=== PATIENT | male | born 1955 | race American Indian/Alaskan Native ===

== ENCOUNTER 2020-10-16 20:28 | Inpatient (IN) | payer OTHER ==
[2020-10-16] MEDS ORDERED: NITROGLYCERIN DRIP 50 MG/250 ML BOTTLE ONE (20:34)
[2020-10-16] MEDS ORDERED: AZITHROMYCIN/NS 500 MG/250 ML 500 MG/250 ML BAG IV ONE (21:15)
[2020-10-16] MEDS ORDERED: dexAMETHasone 4 MG/ML VIAL IV ONE (21:16)
--- NOTE | 2020-10-16 21:17 | Emergency Department Report ---
ED General Adult HPI - General Chief complaint: Dyspnea/Respdistress Stated complaint: RESPIRATORY DISTRESS PUI?: Yes Time Seen by Provider: 10/16/20 21:14 Source: patient, EMS (Verbal report received from emergency medical services. EMS documentation not available at time of chart dictation ), RN notes reviewed Mode of arrival: Stretcher Limitations: Physical Limitation - History of Present Illness Initial comments: The patient was evaluated in the emergency department for symptoms described in the history of present illness. He/she was evaluated in the context of the global COVID-19 pandemic, which necessitated consideration that the patient might be at risk for infection with the virus that causes COVID-19. Institu tional protocols and algorithms that pertain to the evaluation of patients at risk for COVID-19 are in a state of rapid change based on information released by regulatory bodies including the CDC and federal and state organizations. These policies and algorithms were followed during the patient's care in the emergency department. Please note that these policies, procedures and recommendations changed on a rapid basis. The patient is a 65-year-old gentleman. He reportedly has a history of COPD. He is not COVID-19 vaccinated. He is not known to myself previously. During the entire history and physical examination, I had on complete personal protective equipment. The patient is brought to the hospital by EMS with an EMS articulated complaint of acute onset shortness of breath. EMS reports the patient was hypotensive in the field, with a blood pressure of 200/140, and marked respiratory distress. EMS gave magnesium, 7 mg of albuterol, and started the patient on CPAP. Upon arrival to this emergency room, the patient is in marked respiratory distress, tachypneic, with JVD, diaphoresis, and crackles and rales. We had immediate clinical concern for flash pulmonary edema. The patient received 1000 mcg of intravenous nitroglycerin pushed by myself x4. This markedly improved his symptoms. The patient currently denies headache, neck pain, chest pain, abdominal pain. He endorses left quadriceps pain and cramping, but otherwise, denies travel, surgery, immobilization, DVT and pulmonary embolism risk factors. He denies Covid symptoms, such as loss of taste and smell. He is not COVID-19 vaccinated. Currently, he is on a BiPAP, on a nitroglycerin drip at 100 mcg/min, Heart rate 130/140s, with a blood pressure one fifteen systolic. He reports that he feels significantly improved. -: Sudden Consistency: constant Improves with: medication Worsens with: movement - Related Data Allergies Allergy/AdvReac Type Severity Reaction Status Date / Time No Known Allergies Allergy Verified 10/16/20 21:11 ED Review of Systems ROS: Stated complaint: RESPIRATORY DISTRESS Other details as noted in HPI Comment: Unobtainable due to pts medical conditions Constitutional: malaise, weakness. denies: fever Eyes: denies: eye discharge ENT: denies: congestion Respiratory: shortness of breath, SOB with exertion, SOB at rest Cardiovascular: dyspnea on exertion. denies: chest pain, edema, syncope Gastrointestinal: denies: abdominal pain, hematemesis, melena, hematochezia Musculoskeletal: other (Left quadricep cramping) Neurological: denies: weakness (No focal weakness) Psychiatric: anxiety Hematological/Lymphatic: denies: easy bleeding ED Past Medical Hx - Past Medical History Previous Medical History?: Yes Hx COPD: Yes Additional medical history: arthritis - Surgical History Past Surgical History?: No - Social History Smoking Status: Current Some Day Smoker Substance Use Type: Alcohol ED Physical Exam - General Limitations: Physical Limitation General appearance: alert, anxious, in distress - Head Head exam: Present: atraumatic, normocephalic - Eye Eye exam: Present: normal appearance, EOMI. Absent: nystagmus - ENT ENT exam: Present: normal exam, normal orophraynx, mucous membranes moist, normal external ear exam - Neck Neck exam: Present: normal inspection, full ROM. Absent: tenderness, meningismus - Respiratory Respiratory exam: Present: respiratory distress, rales, accessory muscle use. Absent: stridor - Cardiovascular Cardiovascular Exam: Present: normal rhythm, tachycardia, normal heart sounds. Absent: bradycardia, systolic murmur, diastolic murmur, rubs, gallop - GI/Abdominal GI/Abdominal exam: Present: soft. Absent: distended, tenderness, guarding, rebound, rigid, pulsatile mass - Rectal Rectal exam: Present: deferred - Extremities Exam Extremities exam: Present: normal inspection, full ROM, other (2+ pulses noted in the bilateral upper and lower extremities. There is no palpable cord. negative Homans sign. Muscular compartments are soft. The pelvis is stable.). Absent: pedal edema, calf tenderness - Back Exam Back exam: Present: normal inspection. Absent: tenderness, CVA tenderness (R), CVA tenderness (L), paraspinal tenderness, vertebral tenderness - Neurological Exam Neurological exam: Present: alert, other (There is no facial droop. EOMI. 5 out of 5 strength in four extremities) - Psychiatric Psychiatric exam: Present: anxious - Skin Skin exam: Present: warm, dry, intact, normal color. Absent: rash ED Course Vital Signs 10/16/20 10/16/20 10/16/20 20:46 20:50 21:00 Temperature Pulse Rate 158 H 158 H 157 H Pulse Rate [ Anterior Bilateral Throughout] Respiratory 37 H 33 H 33 H Rate Respiratory Rate [Anterior Bilateral Throughout] Blood Pressure 140/110 O2 Sat by Pulse 91 98 98 Oximetry 10/16/20 10/16/20 10/16/20 21:15 21:31 21:45 Temperature Pulse Rate 146 H 146 H Pulse Rate [ Anterior Bilateral Throughout] Respiratory 33 H 21 23 Rate Respiratory Rate [Anterior Bilateral Throughout] Blood Pressure 107/79 113/84 O2 Sat by Pulse 99 98 96 Oximetry 10/16/20 10/16/20 10/16/20 22:01 22:15 22:31 Temperature Pulse Rate 142 H 139 H Pulse Rate [ Anterior Bilateral Throughout] Respiratory 21 25 H 25 H Rate Respiratory Rate [Anterior Bilateral Throughout] Blood Pressure 109/77 113/84 114/82 O2 Sat by Pulse 97 99 97 Oximetry 10/16/20 10/16/20 10/16/20 22:45 23:01 23:15 Temperature Pulse Rate 133 H 129 H 131 H Pulse Rate [ Anterior Bilateral Throughout] Respiratory 24 19 22 Rate Respiratory Rate [Anterior Bilateral Throughout] Blood Pressure 113/77 130/78 140/85 O2 Sat by Pulse 98 98 98 Oximetry 10/16/20 10/16/20 10/17/20 23:31 23:45 00:01 Temperature Pulse Rate 123 H 127 H 120 H Pulse Rate [ Anterior Bilateral Throughout] Respiratory 18 20 20 Rate Respiratory Rate [Anterior Bilateral Throughout] Blood Pressure 124/77 139/82 150/81 O2 Sat by Pulse 100 97 98 Oximetry 10/17/20 10/17/20 10/17/20 00:15 00:35 00:45 Temperature Pulse Rate 122 H Pulse Rate [ Anterior Bilateral Throughout] Respiratory 25 H 22 Rate Respiratory Rate [Anterior Bilateral Throughout] Blood Pressure 124/77 124/77 135/101 O2 Sat by Pulse 98 100 100 Oximetry 10/17/20 10/17/20 10/17/20 00:46 01:01 01:15 Temperature Pulse Rate 123 H Pulse Rate [ Anterior Bilateral Throughout] Respiratory 25 H 22 18 Rate Respiratory Rate [Anterior Bilateral Throughout] Blood Pressure 135/101 131/94 129/92 O2 Sat by Pulse 99 98 99 Oximetry 10/17/20 10/17/20 10/17/20 01:31 01:45 02:01 Temperature Pulse Rate 126 H 124 H Pulse Rate [ Anterior Bilateral Throughout] Respiratory 21 22 21 Rate Respiratory Rate [Anterior Bilateral Throughout] Blood Pressure 122/78 122/78 117/85 O2 Sat by Pulse 99 100 100 Oximetry 10/17/20 10/17/20 10/17/20 02:15 02:31 02:45 Temperature Pulse Rate 121 H 116 H 116 H Pulse Rate [ Anterior Bilateral Throughout] Respiratory 26 H 18 17 Rate Respiratory Rate [Anterior Bilateral Throughout] Blood Pressure 117/84 117/84 131/83 O2 Sat by Pulse 99 97 99 Oximetry 10/17/20 10/17/20 10/17/20 03:01 03:15 03:31 Temperature Pulse Rate 113 H 123 H 114 H Pulse Rate [ Anterior Bilateral Throughout] Respiratory 20 16 18 Rate Respiratory Rate [Anterior Bilateral Throughout] Blood Pressure 136/76 109/79 118/82 O2 Sat by Pulse 99 99 98 Oximetry 10/17/20 10/17/20 10/17/20 03:45 04:01 04:10 Temperature 97.6 F Pulse Rate 112 H 102 H Pulse Rate [ Anterior Bilateral Throughout] Respiratory 18 17 Rate Respiratory Rate [Anterior Bilateral Throughout] Blood Pressure 113/87 123/87 O2 Sat by Pulse 98 97 Oximetry 10/17/20 10/17/20 10/17/20 04:15 04:31 04:45 Temperature Pulse Rate 103 H 113 H 103 H Pulse Rate [ Anterior Bilateral Throughout] Respiratory 17 19 18 Rate Respiratory Rate [Anterior Bilateral Throughout] Blood Pressure 109/89 115/92 128/92 O2 Sat by Pulse 99 98 100 Oximetry 10/17/20 10/17/20 10/17/20 05:00 05:15 05:31 Temperature Pulse Rate 107 H 104 H 107 H Pulse Rate [ Anterior Bilateral Throughout] Respiratory 17 20 20 Rate Respiratory Rate [Anterior Bilateral Throughout] Blood Pressure 128/92 123/79 122/92 O2 Sat by Pulse 99 99 97 Oximetry 10/17/20 10/17/20 10/17/20 05:45 06:01 06:15 Temperature Pulse Rate 105 H 119 H 105 H Pulse Rate [ Anterior Bilateral Throughout] Respiratory 16 24 18 Rate Respiratory Rate [Anterior Bilateral Throughout] Blood Pressure 121/81 118/81 125/85 O2 Sat by Pulse 98 98 99 Oximetry 10/17/20 10/17/20 10/17/20 07:01 08:01 08:41 Temperature Pulse Rate 106 H 115 H 116 H Pulse Rate [ Anterior Bilateral Throughout] Respiratory 19 19 Rate Respiratory Rate [Anterior Bilateral Throughout] Blood Pressure 116/81 116/79 117/87 O2 Sat by Pulse 99 98 Oximetry 10/17/20 10/17/20 10/17/20 09:01 09:58 10:01 Temperature Pulse Rate 97 H 105 H Pulse Rate [ Anterior Bilateral Throughout] Respiratory 21 23 Rate Respiratory Rate [Anterior Bilateral Throughout] Blood Pressure 140/76 141/106 O2 Sat by Pulse 99 99 100 Oximetry 10/17/20 10/17/20 10/17/20 10:53 11:01 12:01 Temperature Pulse Rate 112 H Pulse Rate [ 103 H Anterior Bilateral Throughout] Respiratory 29 H 18 Rate Respiratory 19 Rate [Anterior Bilateral Throughout] Blood Pressure 145/96 120/84 O2 Sat by Pulse 99 92 Oximetry 10/17/20 10/17/20 10/17/20 13:01 13:36 14:55 Temperature Pulse Rate 93 H Pulse Rate [ 103 H Anterior Bilateral Throughout] Respiratory 16 Rate Respiratory 15 Rate [Anterior Bilateral Throughout] Blood Pressure 133/96 O2 Sat by Pulse 93 Oximetry 10/17/20 14:56 Temperature Pulse Rate Pulse Rate [ Anterior Bilateral Throughout] Respiratory Rate Respiratory Rate [Anterior Bilateral Throughout] Blood Pressure O2 Sat by Pulse 97 Oximetry - Reevaluation(s) Reevaluation #1: 10/16/20 23:00 Differential diagnosis, including but not limited to: Flash pulmonary edema, pneumonia, COPD exacerbation, congestive heart failure, pulmonary embolism, COVID-19 Assessment and plan: 65-year-old gentleman, presenting with marked tachypnea, tachycardia, JVD, diaphoresis, and hypertension, very suspicious for clinical flash pulmonary edema. He was treated very aggressively with nitroglycerin, and had a moderate to significant improvement. He is not COVID-19 vaccinated, and he denies DVT and pulmonary embolism risk factors, however, he is ruling in for systemic inflammatory response syndrome, and is still moderately tachycardic. EMS gave seven of albuterol in the field. Place patient on isolation. Start antibiotics, and continue Decadron. Obtain CT angiogram of the chest. Attempt to wean patient off of nitroglycerin. Hospital physician, Dr. Guillen to admit to [facility] If we cannot wean patient off of nitroglycerin, he will require admission to the ICU, and we will also contact critical care to follow in consultation. The patient himself denies physical chest pain or abdominal pain at this time. The patient is agreeable to admission and hospitalization. Send Covid laboratory studies. 10/16/20 23:02 Given concern for Covid for flash pulmonary edema, in spite of patient ruling in for systemic inflammatory response syndrome, we will withhold aggressive fluid bolus. The hospital physician requested 40 mg of Lasix. 10/17/20 00:52 Have not been able to wean patient from nitroglycerin. He will be admitted to the ICU. CT scan of the chest obtained, shows no pulmonary embolism, or pneumothorax. Dr. Parsons of critical care will follow in consultation. Dr Guillen updated 10/17/20 01:25 Patient is much improved. Heart rate 122 bpm. Blood pressure is 122/78. ED Medical Decision Making - Lab Data Result diagrams: 10/16/20 08:49 10/17/20 08:15 Vital Signs 10/16/20 10/16/20 20:50 21:15 Pulse Rate 158 H Respiratory 33 H 33 H Rate Blood Pressure 140/110 O2 Sat by Pulse 98 99 Oximetry Lab Results 10/16/20 10/16/20 10/16/20 Range/Units 08:49 08:49 08:49 WBC 7.8 (4.5-11.0) K/mm3 RBC 4.90 (3.65-5.03) M/mm3 Hgb 14.3 (11.8-15.2) gm/dl Hct 41.8 (35.5-45.6) % MCV 86 (84-94) fl MCH 29 (28-32) pg MCHC 34 (32-34) % RDW 15.9 H (13.2-15.2) % Plt Count 297 (140-440) K/mm3 Lymph % (Auto) 37.9 H (13.4-35.0) % Louisa % (Auto) 11.7 H (0.0-7.3) % Eos % (Auto) 5.7 H (0.0-4.3) % Baso % (Auto) 0.8 (0.0-1.8) % Lymph # (Auto) 2.9 (1.2-5.4) K/mm3 Louisa # (Auto) 0.9 H (0.0-0.8) K/mm3 Eos # (Auto) 0.4 (0.0-0.4) K/mm3 Baso # (Auto) 0.1 (0.0-0.1) K/mm3 Seg Neutrophils % 43.9 (40.0-70.0) % Seg Neutrophils # 3.4 (1.8-7.7) K/mm3 PT 13.6 (12.2-14.9) Sec. INR 0.99 (0.87-1.13) APTT 29.1 (24.2-36.6) Sec. D-Dimer 945.42 H (0-234) ng/mlDDU Sodium (137-145) mmol/L Potassium (3.6-5.0) mmol/L Chloride (98-107) mmol/L Carbon Dioxide (22-30) mmol/L Anion Gap mmol/L BUN (9-20) mg/dL Creatinine (0.8-1.3) mg/dL Estimated GFR ml/min BUN/Creatinine Ratio % Glucose (75-100) mg/dL Lactic Acid 1.70 (0.7-2.0) mmol/L Calcium (8.4-10.2) mg/dL Magnesium (1.7-2.3) mg/dL Ferritin (30.0-300.0) ng/mL Total Bilirubin (0.1-1.2) mg/dL AST (5-40) units/L ALT (7-56) units/L Alkaline Phosphatase (35-129) units/L Lactate Dehydrogenase (91-180) units/L Troponin T (0.00-0.029) ng/mL C-Reactive Protein (0.00-1.30) mg/dL NT-Pro-B Natriuret Pep (0-900) pg/mL Total Protein (6.3-8.2) g/dL Albumin (3.9-5) g/dL Albumin/Globulin Ratio % 10/16/20 10/16/20 10/16/20 Range/Units 21:33 21:33 21:33 WBC (4.5-11.0) K/mm3 RBC (3.65-5.03) M/mm3 Hgb (11.8-15.2) gm/dl Hct (35.5-45.6) % MCV (84-94) fl MCH (28-32) pg MCHC (32-34) % RDW (13.2-15.2) % Plt Count (140-440) K/mm3 Lymph % (Auto) (13.4-35.0) % Louisa % (Auto) (0.0-7.3) % Eos % (Auto) (0.0-4.3) % Baso % (Auto) (0.0-1.8) % Lymph # (Auto) (1.2-5.4) K/mm3 Louisa # (Auto) (0.0-0.8) K/mm3 Eos # (Auto) (0.0-0.4) K/mm3 Baso # (Auto) (0.0-0.1) K/mm3 Seg Neutrophils % (40.0-70.0) % Seg Neutrophils # (1.8-7.7) K/mm3 PT (12.2-14.9) Sec. INR (0.87-1.13) APTT (24.2-36.6) Sec. D-Dimer (0-234) ng/mlDDU Sodium 136 L (137-145) mmol/L Potassium 4.5 (3.6-5.0) mmol/L Chloride 100.2 (98-107) mmol/L Carbon Dioxide 25 (22-30) mmol/L Anion Gap 15 mmol/L BUN 10 (9-20) mg/dL Creatinine 0.9 (0.8-1.3) mg/dL Estimated GFR > 60 ml/min BUN/Creatinine Ratio 11 % Glucose 209 H (75-100) mg/dL Lactic Acid (0.7-2.0) mmol/L Calcium 9.7 (8.4-10.2) mg/dL Magnesium 2.50 H (1.7-2.3) mg/dL Ferritin 128.6 (30.0-300.0) ng/mL Total Bilirubin 0.50 (0.1-1.2) mg/dL AST 18 (5-40) units/L ALT 24 (7-56) units/L Alkaline Phosphatase 83 (35-129) units/L Lactate Dehydrogenase 168 (91-180) units/L Troponin T < 0.010 (0.00-0.029) ng/mL C-Reactive Protein 1.70 H (0.00-1.30) mg/dL NT-Pro-B Natriuret Pep 33.93 (0-900) pg/mL Total Protein 7.9 (6.3-8.2) g/dL Albumin 4.1 (3.9-5) g/dL Albumin/Globulin Ratio 1.1 % - EKG Data -: EKG Interpreted by Ok EKG shows normal: sinus rhythm Rate: tachycardia - EKG Data 10/16/20 22:59 The EKG is interpreted at 21: 17 Sinus rhythm, tachycardia, 148 bpm. Normal axis, normal IL interval, QTC 445 ms, left ventricular hypertrophy, borderline incomplete right bundle branch block. This is an abnormal EKG. This is not a STEMI. There is no prior EKG available for comparison. - Radiology Data Radiology results: pending, report reviewed, image reviewed XR chest 1V ap INDICATION / CLINICAL INFORMATION: Dyspnea. COMPARISON: None available. FINDINGS: SUPPORT DEVICES: None. HEART /PULMONARY VASCULATURE: No significant abnormality. LUNGS / PLEURA: Lungs are hyperexpanded. There are patchy interstitial opacities throughout the mid to lower lungs. No sizable pleural effusion. No pneumothorax. ADDITIONAL FINDINGS: No significant additional findings. IMPRESSION: Mild patchy interstitial opacities, suspicious for infiltrate. Signer Name: Barrett Villarreal MD Signed: 10/16/2020 8:29 PM Workstation Name: [id number] CTA CHEST WITH CONTRAST INDICATION / CLINICAL INFORMATION: acute dyspnea. TE CHNIQUE: Axial CT images were obtained through the chest after injection of IV contrast. 3 plane MIP and/or 3D reconstructions were produced. All CT scans at this location are performed using CT dose reduction for ALARA by means of automated exposure control. COMPARISON: None available. FINDINGS: Pulmonary arteries are patent without filling defect or evidence for PTE. Heart and aorta appear normal. No mediastinal or hilar adenopathy. No focal consolidation or pleural effusion. Emphysematous changes seen in bilateral lungs ADDITIONAL FINDINGS: None. UPPER ABDOMEN: No acute findings. SKELETAL STRUCTURES: No significant osseous abnormality. IMPRESSION: 1. No CT evidence for pulmonary embolism. 2. No acute findings. Signer Name: Bethel Ramirez MD Signed: 10/16/2020 11:46 PM Workstation Name: [id number] Critical Care Time: Yes Critical care time in (mins) excluding proc time.: 35 Critical care attestation.: If time is entered above; I have spent that time in minutes in the direct care of this critically ill patient, excluding procedure time. ED Disposition Clinical Impression: Acute respiratory failure, Suspected COVID-19 virus infection, Hypertensive e mergency Disposition: ADMITTED INPATIENT Is pt being admited?: Yes Does the pt Need Aspirin: No Condition: Critical
--- NOTE | 2020-10-16 21:34 | XRay Report ---
XR chest 1V ap INDICATION / CLINICAL INFORMATION: Dyspnea. COMPARISON: None available. FINDINGS: SUPPORT DEVICES: None. HEART /PULMONARY VASCULATURE: No significant abnormality. LUNGS / PLEURA: Lungs are hyperexpanded. There are patchy interstitial opacities throughout the mid t o lower lungs. No sizable pleural effusion. No pneumothorax. ADDITIONAL FINDINGS: No significant additional findings. IMPRESSION: Mild patchy interstitial opacities, suspicious for infiltrate. Signer Name: Barrett Villarreal MD Signed: 10/16/2020 9:29 PM Workstation Name: [id number]
[2020-10-16 21:35] LABS: Basophils # (Auto) 0.1 K/mm3 (0.0-0.1); Basophils % (Auto) 0.8 % (0.0-1.8); Eosinophils # (Auto) 0.4 K/mm3 (0.0-0.4); Eosinophils % (Auto) 5.7 % (0.0-4.3); Hematocrit 41.8 % (35.5-45.6); Hemoglobin 14.3 gm/dl (11.8-15.2); Lymphocytes # (Auto) 2.9 K/mm3 (1.2-5.4); Lymphocytes % (Auto) 37.9 % (13.4-35.0); Mean Corpuscular HGB Conc 34 % (32-34); Mean Corpuscular Volume 86 fl (84-94); Monocytes # (Auto) 0.9 K/mm3 (0.0-0.8); Monocytes % (Auto) 11.7 % (0.0-7.3); Platelet Count 297 K/mm3 (140-440); Red Cell Distribution Width 15.9 % (13.2-15.2)
[2020-10-16 21:46] LABS: INR 0.99 (0.87-1.13)
[2020-10-16 21:47] LABS: Partial Thromboplastin Time 29.1 Sec. (24.2-36.6)
[2020-10-16] MEDS ORDERED: NITROGLYCERIN DRIP 50 MG/250 ML BOTTLE IV SCH (22:00)
[2020-10-16 22:42] LABS: Alanine Aminotransferase 24 units/L (7-56); Albumin 4.1 g/dL (3.9-5); BUN/Creatinine Ratio 11; Blood Urea Nitrogen 10 mg/dL (9-20); Calcium 9.7 mg/dL (8.4-10.2); Hemolysis Index 3
[2020-10-16] MEDS ORDERED: FUROSEMIDE 40 MG/4 ML INJ IV ONE (22:48)
[2020-10-16] MEDS ORDERED: cefTRIAXone/NS 1 GM/50 ML 1 GM/50 ML BAG IV ONE (23:18)
--- NOTE | 2020-10-17 00:50 | Cat Scan Report ---
CTA CHEST WITH CONTRAST INDICATION / CLINICAL INFORMATION: acute dyspnea. TECHNIQUE: Axial CT images were obtained through the chest after injection of IV contrast. 3 plane AR P and/or 3D reconstructions were produced. All CT scans at this location are performed using CT dose reduction for ALARA by means of automated exposure control. COMPARISON: None available. FINDINGS: Pulmonary arteries are patent without filling defect or evidence for PTE. Heart and aorta appear norm al. No mediastinal or hilar adenopathy. No focal consolidation or pleural effusion. Emphysematous main nges seen in bilateral lungs ADDITIONAL FINDINGS: None. UPPER ABDOMEN: No acute findings. SKELETAL STRUCTURES: No significant osseous abnormality. IMPRESSION: 1. No CT evidence for pulmonary embolism. 2. No acute findings. Signer Name: Bethel Ramirez MD Signed: 10/17/2020 12:46 AM Workstation Name: [id number]
[2020-10-17] MEDS ORDERED: SODIUM CHLORIDE 0.9% 250ML 250 ML IV ONE (01:25)
--- NOTE | 2020-10-17 02:56 | History and Physical Report ---
History of Present Illness Date of examination: 10/17/20 Date of admission: 10/17/20 00:47 Chief complaint: Dyspnea Respiratory distress Hypertension History of present illness: 65-year-old male with past medical history of COPD was brought to the emergency room because of acute onset shortness of breath. EMS reports the patient was hypertensive in the field, with a blood pressure of 200/140, and marked respiratory distress. EMS gave magnesium, 7 mg of albuterol, and started the patient on CPAP. Upon arrival to this emergency room, the patient is in marked respiratory distress, tachypneic, with JVD, diaphoresis, and crackles and rales concern for flash pulmonary edema. The patient received 1000 mcg of intravenous nitroglycerin . Patient was put on BiPAP and nitro drip. this markedly improved his symptoms. The patient currently denies headache, neck pain, chest pain, abdominal pain. He endorses left quadriceps pain , He denies Covid symptoms, such as loss of taste and smell. He is not COVID-[address] scan of the chest showed no active pulmonary embolism. No acute findings Past History Past Medical History: COPD Medications and Allergies Allergies Allergy/AdvReac Type Severity Reaction Status Date / Time No Known Allergies Allergy Verified 10/16/20 21:11 Active Meds: Active Medications Nitroglycerin/Dextrose (Tridil Drip 50mg/250ml) 50 mg in 250 mls @ 3 mls/hr IV TITR [facility]ERISE; Protocol Last Titration: 10/16/20 22:50 Dose: 50 mcg/min, 15 mls/hr Documented by: Review of Systems All systems: negative Cardiovascular: shortness of breath, dyspnea on exertion Respiratory: shortness of breath, dyspnea on exertion Exam - Constitutional Vitals: Temp Pulse Resp BP Pulse Ox 116 H 17 131/83 99 10/17/20 02:45 10/17/20 02:45 10/17/20 02:45 10/17/20 02:45 General appearance: Present: no acute distress, well-nourished - EENT Eyes: Present: PERRL ENT: hearing intact, clear oral mucosa - Neck Neck: Present: supple, normal ROM - Respiratory Respiratory effort: labored, accessory muscle use Respiratory: bilateral: rales - Cardiovascular Heart Sounds: Present: S1 & S2. Absent: rub, click - Extremities Extremities: pulses symmetrical, No edema Peripheral Pulses: within normal limits - Abdominal General gastrointestinal: Present: soft, non-tender, non-distended, normal bowel sounds Male genitourinary: Present: normal - Integumentary Integumentary: Present: clear, warm, dry - Musculoskeletal Musculoskeletal: gait normal, strength equal bilaterally - Psychiatric Psychiatric: appropriate mood/affect, intact judgment & insight - Neurologic Neurologic: CNII-XII intact, moves all extremities HEART Score - HEART Score Troponin: Troponin T < 0.010 ng/mL (0.00-0.029) 10/16/20 21:33 Results - Labs CBC & Chem 7: 10/16/20 08:49 10/16/20 21:33 Labs: Laboratory Last Values WBC 7.8 K/mm3 (4.5-11.0) 10/16/20 08:49 RBC 4.90 M/mm3 (3.65-5.03) 10/16/20 08:49 Hgb 14.3 gm/dl (11.8-15.2) 10/16/20 08:49 Hct 41.8 % (35.5-45.6) 10/16/20 08:49 MCV 86 fl (84-94) 10/16/20 08:49 MCH 29 pg (28-32) 10/16/20 08:49 MCHC 34 % (32-34) 10/16/20 08:49 RDW 15.9 % (13.2-15.2) H 10/16/20 08:49 Plt Count 297 K/mm3 (140-440) 10/16/20 08:49 Lymph % (Auto) 37.9 % (13.4-35.0) H 10/16/20 08:49 [place] % (Auto) 11.7 % (0.0-7.3) H 10/16/20 08:49 Eos % (Auto) 5.7 % (0.0-4.3) H 10/16/20 08:49 Baso % (Auto) 0.8 % (0.0-1.8) 10/16/20 08:49 Lymph # (Auto) 2.9 K/mm3 (1.2-5.4) 10/16/20 08:49 [place] # (Auto) 0.9 K/mm3 (0.0-0.8) H 10/16/20 08:49 Eos # (Auto) 0.4 K/mm3 (0.0-0.4) 10/16/20 08:49 Baso # (Auto) 0.1 K/mm3 (0.0-0.1) 10/16/20 08:49 Seg Neutrophils % 43.9 % (40.0-70.0) 10/16/20 08:49 Seg Neutrophils # 3.4 K/mm3 (1.8-7.7) 10/16/20 08:49 PT 13.6 Sec. (12.2-14.9) 10/16/20 08:49 INR 0.99 (0.87-1.13) 10/16/20 08:49 APTT 29.1 Sec. (24.2-36.6) 10/16/20 08:49 D-Dimer 945.42 ng/mlDDU (0-234) H 10/16/20 08:49 Sodium 136 mmol/L (137-145) L 10/16/20 21:33 Potassium 4.5 mmol/L (3.6-5.0) 10/16/20 21:33 Chloride 100.2 mmol/L (98-107) 10/16/20 21:33 Carbon Dioxide 25 mmol/L (22-30) 10/16/20 21:33 Anion Gap 15 mmol/L 10/16/20 21:33 BUN 10 mg/dL (9-20) 10/16/20 21:33 Creatinine 0.9 mg/dL (0.8-1.3) 10/16/20 21:33 Estimated GFR > 60 ml/min 10/16/20 21:33 BUN/Creatinine Ratio 11 % 10/16/20 21:33 Glucose 209 mg/dL (75-100) H 10/16/20 21:33 Lactic Acid 1.70 mmol/L (0.7-2.0) 10/16/20 08:49 Calcium 9.7 mg/dL (8.4-10.2) 10/16/20 21:33 Magnesium 2.50 mg/dL (1.7-2.3) H 10/16/20 21:33 Ferritin 128.6 ng/mL (30.0-300.0) 10/16/20 21:33 Total Bilirubin 0.50 mg/dL (0.1-1.2) 10/16/20 21:33 AST 18 units/L (5-40) 10/16/20 21:33 ALT 24 units/L (7-56) 10/16/20 21:33 Alkaline Phosphatase 83 units/L (35-129) 10/16/20 21:33 Lactate Dehydrogenase 168 units/L (91-180) 10/16/20 21:33 Troponin T < 0.010 ng/mL (0.00-0.029) 10/16/20 21:33 C-Reactive Protein 1.70 mg/dL (0.00-1.30) H 10/16/20 21:33 NT-Pro-B Natriuret Pep 33.93 pg/mL (0-900) 10/16/20 21:33 Total Protein 7.9 g/dL (6.3-8.2) 10/16/20 21:33 Albumin 4.1 g/dL (3.9-5) 10/16/20 21:33 Albumin/Globulin Ratio 1.1 % 10/16/20 21:33 Microbiology: Microbiology 10/16/20 21:33 Peripheral/Venous Blood Culture - Preliminary Culture in Progress 10/16/20 21:33 Peripheral/Venous Blood Culture - Preliminary Culture in Progress - Imaging and Cardiology CT scan - chest: report reviewed Assessment and Plan VTE prophylaxis?: Chemical Plan of care discussed with patient/family: Yes - Patient Problems (1) Acute respiratory failure Current Visit: Yes Status: Acute Plan to address problem: Admit the patient to the critical care unit. Put the patient on BiPAP. DuoNeb by nebulizer every 4 hours. Nitroglycerin drip. Rocephin 2 g IV daily and Zithromax 500 mg IV daily. Decadron 6 mg IV daily. We will consult critical care as well as infectious disease for evaluation. Follow Covid PCR and Covid inflammatory marker (2) Hypertensive emergency Current Visit: Yes Status: Acute Plan to address problem: We put the patient in critical care unit. Patient is on nitroglycerin drip. BP is 131/83 and pulse 116 O2 sat 99%. We will monitor the patient closely. We consulted critical care evaluation (3) Suspected COVID-19 virus infection Current Visit: Yes Status: Acute Plan to address problem: Put the patient on BiPAP. DuoNeb by nebulizer every 4 hours. Nitroglycerin drip. Rocephin 2 g IV daily and Zithromax 500 mg IV daily. Decadron 6 mg IV daily. We will consult critical care as well as infectious disease for evaluation. Follow Covid PCR and Covid inflammatory marker (4) COPD (chronic obstructive pulmonary disease) Current Visit: Yes Status: Acute Plan to address problem: Put the patient on BiPAP. DuoNeb by nebulizer every 4 hours. Decadron 6 mg IV daily. (5) DVT prophylaxis Current Visit: Yes Status: Acute Plan to address problem: Heparin 5000 units subcu every 12 hours for DVT prophylaxis. Pepcid 20 mg IV every 12 hours for GI prophylaxis. Patient is a full code
[2020-10-17] MEDS ORDERED: ACETAMINOPHEN 325 MG TAB PO PRN (03:30)
[2020-10-17] MEDS ORDERED: hydrALAZINE 20 MG/1 ML INJ IV PRN (03:30)
[2020-10-17] MEDS ORDERED: HYDROmorphone 1 MG/1 ML INJ IV PRN (03:30)
[2020-10-17] MEDS ORDERED: oxyCODONE /ACETAMINOPHEN 5-325MG TAB PO PRN (03:30)
[2020-10-17] MEDS ORDERED: ONDANSETRON 4 MG/2 ML INJ IV PRN (03:30)
[2020-10-17] MEDS ORDERED: ALBUTEROL 2.5 MG/3 ML NEBU IH PRN (03:30)
[2020-10-17 04:20] LABS: Bilirubin,Urine NEG (Negative); Blood,Urine NEG (Negative); Color,Urine Straw (Yellow); Hyaline Casts,Urine 1 /LPF; Mucus,Urine FEW /HPF; RBC,Urine < 1.0 /HPF (0.0-6.0); Urobilinogen,Urine < 2.0 mg/dL (<2.0)
[2020-10-17] MEDS ORDERED: amLODIPine 5 MG TAB PO SCH (08:00)
[2020-10-17] MEDS: amLODIPine 5 MG TAB PO SCH (08:41)
[2020-10-17 08:52] LABS: BUN/Creatinine Ratio 13; Blood Urea Nitrogen 15 mg/dL (9-20); Hemolysis Index 9
--- NOTE | 2020-10-17 09:34 | Event Note ---
Date: 10/17/20 Admitted as hypertensive Emergency with acute respiratory failure. Started on Nitro drip and diuresed with lasix. Has since been weaned off nitro, however still on BIPAP. CT and CXR more consistent with obstructive lung disease with air trapping. Most likely COPD. Being ruled out for COVID but CT scan of chest is essentially negative. Placed patient on steroids solumedrol 60q8. Would hold on nebs until ruled out for COVID. If negative, then can start BID pulmicort and ok with scheduled duonebs with PRN albuterol puffer. Ordered ABG and should be able to wean off bipap. At this time, was only consulted because of Nitro drip so will sign off, however if pulmonary questions, please don't hesitate to ask.
[2020-10-17] MEDS ORDERED: dexAMETHasone 4 MG/ML VIAL IV SCH (10:00)
[2020-10-17] MEDS: IPRATROPIUM/ALBUTEROL SULFATE 3 ML AMPUL.NEB IH SCH ×3 (10:52→23:49)
[2020-10-17] MEDS: HEPARIN 5,000 UNIT/1 ML VIAL SUB-Q SCH ×2 (10:58→23:00)
[2020-10-17] MEDS: FAMOTIDINE 20 MG/2 ML INJ IV SCH ×2 (10:59→23:00)
--- NOTE | 2020-10-17 12:07 | Progress Note ---
Assessment and Plan Assessment and plan: History of present illness: 65-year-old male with past medical history of COPD was brought to the emergency room because of acute onset shortness of breath. EMS reports the patient was hypertensive in the field, with a blood pressure of 200/140, and marked respiratory distress. Unvaccinated for COVID-19 pneumonia. Hospital course to date: 10/17/2020: BIPAP transitioned to HFNC. Breathing improved. Awaiting COVID PCR. Nitro gtt now off, will start oral antihypertensives. Assessment and plan (1) Acute respiratory failure Current Visit: Yes Status: Acute Plan to address problem: Admit the patient to the critical care unit. Put the patient on BiPAP now on nasal cannula. DuoNeb by nebulizer every 4 hours. Nitroglycerin drip. Rocephin 2 g IV daily and Zithromax 500 mg IV daily. Decadron 6 mg IV daily. We will consult critical care as well as infectious disease for evaluation. Follow Covid PCR and Covid inflammatory marker (2) Hypertensive emergency Current Visit: Yes Status: Acute Plan to address problem: We put the patient in critical care unit. Patient started on nitroglycerin drip on admission, now off. BP is 131/83 and pulse 116 O2 sat 99%. We will monitor the patient closely. We consulted critical care evaluation (3) Suspected COVID-19 virus infection Current Visit: Yes Status: Acute Plan to address problem: Put the patient on BiPAP. DuoNeb by nebulizer every 4 hours. Nitroglycerin drip. Rocephin 2 g IV daily and Zithromax 500 mg IV daily. Decadron 6 mg IV daily. We will consult critical care as well as infectious disease for evalu ation. Follow Covid PCR and Covid inflammatory marker (4) COPD (chronic obstructive pulmonary disease) Current Visit: Yes Status: Acute Plan to address problem: Put the patient on BiPAP. DuoNeb by nebulizer every 4 hours. Decadron 6 mg IV daily. (5) DVT prophylaxis Current Visit: Yes Status: Acute Plan to address problem: Heparin 5000 units subcu every 12 hours for DVT prophylaxis. Pepcid 20 mg IV every 12 hours for GI prophylaxis. Patient is a full code History Interval history: Resting comfortably. Off BIPAP. NOw on HIFLOW NC. States his breathing has improved. Hospitalist Physical - Physical exam Narrative exam: General appearance: Present: no acute distress, well-nourished - EENT Eyes: Present: PERRL ENT: hearing intact, clear oral mucosa - Neck Neck: Present: supple, normal ROM - Respiratory Respiratory effort: respiratory effort improved. on hfnc Respiratory: bilateral: rales - Cardiovascular Heart Sounds: Present: S1 & S2. Absent: rub, click - Extremities Extremities: pulses symmetrical, No edema Peripheral Pulses: within normal limits - Abdominal General gastrointestinal: Present: soft, non-tender, non-distended, normal bowel sounds Male genitourinary: Present: normal - Integumentary Integumentary: Present: clear, warm, dry - Musculoskeletal Musculoskeletal: gait normal, strength equal bilaterally - Psychiatric Psychiatric: appropriate mood/affect, intact judgment & insight - Neurologic Neurologic: CNII-XII intact, moves all extremities - Constitutional Vitals: Temp Pulse Resp BP Pulse Ox 97.6 F 103 H 19 117/87 99 10/17/20 04:10 10/17/20 10:53 10/17/20 10:53 10/17/20 08:41 10/17/20 09:58 General appearance: Present: no acute distress, well-nourished HEART Score - HEART Score Troponin: Troponin T < 0.010 ng/mL (0.00-0.029) 10/16/20 21:33 Results - Labs CBC & Chem 7: 10/16/20 08:49 10/17/20 08:15 Labs: Laboratory Last Values WBC 7.8 K/mm3 (4.5-11.0) 10/16/20 08:49 RBC 4.90 M/mm3 (3.65-5.03) 10/16/20 08:49 Hgb 14.3 gm/dl (11.8-15.2) 10/16/20 08:49 Hct 41.8 % (35.5-45.6) 10/16/20 08:49 MCV 86 fl (84-94) 10/16/20 08:49 MCH 29 pg (28-32) 10/16/20 08:49 MCHC 34 % (32-34) 10/16/20 08:49 RDW 15.9 % (13.2-15.2) H 10/16/20 08:49 Plt Count 297 K/mm3 (140-440) 10/16/20 08:49 Lymph % (Auto) 37.9 % (13.4-35.0) H 10/16/20 08:49 [place] % (Auto) 11.7 % (0.0-7.3) H 10/16/20 08:49 Eos % (Auto) 5.7 % (0.0-4.3) H 10/16/20 08:49 Baso % (Auto) 0.8 % (0.0-1.8) 10/16/20 08:49 Lymph # (Auto) 2.9 K/mm3 (1.2-5.4) 10/16/20 08:49 [place] # (Auto) 0.9 K/mm3 (0.0-0.8) H 10/16/20 08:49 Eos # (Auto) 0.4 K/mm3 (0.0-0.4) 10/16/20 08:49 Baso # (Auto) 0.1 K/mm3 (0.0-0.1) 10/16/20 08:49 Seg Neutrophils % 43.9 % (40.0-70.0) 10/16/20 08:49 Seg Neutrophils # 3.4 K/mm3 (1.8-7.7) 10/16/20 08:49 PT 13.6 Sec. (12.2-14.9) 10/16/20 08:49 INR 0.99 (0.87-1.13) 10/16/20 08:49 APTT 29.1 Sec. (24.2-36.6) 10/16/20 08:49 D-Dimer 945.42 ng/mlDDU (0-234) H 10/16/20 08:49 ABG pH 7.354 (7.320-7.450) 10/17/20 09:19 POC ABG pCO2 43.3 mmHg (32.0-48.0) 10/17/20 09:19 POC ABG pO2 374.3 mmHg (83-108) H 10/17/20 09:19 POC ABG HCO3 23.6 10/17/20 09:19 ABG O2 Saturation 99.8 (0-100) 10/17/20 09:19 POC ABG Base Excess -2.0 10/17/20 09:19 ABG Hemoglobin 14.4 (12.0-17.5) 10/17/20 09:19 ABG Oxyhemoglobin 99.2 (94-98) H 10/17/20 09:19 ABG Methemoglobin 0.1 (0.0-1.5) 10/17/20 09:19 ABG Sodium 134.2 mmol/L (136.0-145.0) L 10/17/20 09:19 ABG Potassium 5.5 mmol/L (3.40-4.50) H 10/17/20 09:19 ABG Chloride 100.0 mmol/L (98-107) 10/17/20 09:19 ABG Glucose 153 mg/dL (65-95) H 10/17/20 09:19 Carboxyhemoglobin 0.5 (0.5-1.5) 10/17/20 09:19 FiO2 % 100.0 10/17/20 09:19 Sodium 135 mmol/L (137-145) L 10/17/20 08:15 Potassium 6.1 mmol/L (3.6-5.0) H* D 10/17/20 08:15 Chloride 99.8 mmol/L (98-107) 10/17/20 08:15 Carbon Dioxide 27 mmol/L (22-30) 10/17/20 08:15 Anion Gap 14 mmol/L 10/17/20 08:15 BUN 15 mg/dL (9-20) 10/17/20 08:15 Creatinine 1.2 mg/dL (0.8-1.3) 10/17/20 08:15 Estimated GFR > 60 ml/min 10/17/20 08:15 BUN/Creatinine Ratio 13 % 10/17/20 08:15 Glucose 174 mg/dL (75-100) H 10/17/20 08:15 Lactic Acid 1.70 mmol/L (0.7-2.0) 10/16/20 08:49 Calcium 10.0 mg/dL (8.4-10.2) 10/17/20 08:15 Magnesium 2.50 mg/dL (1.7-2.3) H 10/16/20 21:33 Ferritin 128.6 ng/mL (30.0-300.0) 10/16/20 21:33 Total Bilirubin 0.50 mg/dL (0.1-1.2) 10/16/20 21:33 AST 18 units/L (5-40) 10/16/20 21:33 ALT 24 units/L (7-56) 10/16/20 21:33 Alkaline Phosphatase 83 units/L (35-129) 10/16/20 21:33 Lactate Dehydrogenase 168 units/L (91-180) 10/16/20 21:33 Troponin T < 0.010 ng/mL (0.00-0.029) 10/16/20 21:33 C-Reactive Protein 1.70 mg/dL (0.00-1.30) H 10/16/20 21:33 NT-Pro-B Natriuret Pep 33.93 pg/mL (0-900) 10/16/20 21:33 Total Protein 7.9 g/dL (6.3-8.2) 10/16/20 21:33 Albumin 4.1 g/dL (3.9-5) 10/16/20 21:33 Albumin/Globulin Ratio 1.1 % 10/16/20 21:33 Arterial Blood Glucose 153 mg/dL (65-95) H 10/17/20 09:19 Arterial Blood Ionized Calcium 4.9 mg/dL (4.6-5.3) 10/17/20 09:19 Urine Color Straw (Yellow) 10/17/20 Unknown Urine Turbidity Clear (Clear) 10/17/20 Unknown Urine pH 5.0 (5.0-7.0) 10/17/20 Unknown Ur Specific [place] 1.016 (1.003-1.030) 10/17/20 Unknown Urine Protein 30 mg/dl mg/dL (Negative) 10/17/20 Unknown Urine Glucose (UA) Neg mg/dL (Negative) 10/17/20 Unknown Urine Ketones Neg mg/dL (Negative) 10/17/20 Unknown Urine Blood Neg (Negative) 10/17/20 Unknown Urine Nitrite Neg (Negative) 10/17/20 Unknown Urine Bilirubin Neg (Negative) 10/17/20 Unknown Urine Urobilinogen < 2.0 mg/dL (<2.0) 10/17/20 Unknown Ur Leukocyte Esterase Neg (Negative) 10/17/20 Unknown Urine WBC (Auto) 1.0 /HPF (0.0-6.0) 10/17/20 Unknown Urine RBC (Auto) < 1.0 /HPF (0.0-6.0) 10/17/20 Unknown Hyaline Casts 1 /LPF 10/17/20 Unknown Urine Mucus Few /HPF 10/17/20 Unknown Microbiology: Microbiology 10/16/20 21:33 Peripheral/Venous Blood Culture - Preliminary Culture in Progress 10/16/20 21:33 Peripheral/Venous Blood Culture - Preliminary Culture in Progress Active Medications - Current Medications Current Medications: Generic Name Dose Route Start Last Admin Trade Name Freq PRN Reason Stop Dose Admin Acetaminophen 650 mg 10/17/20 03:30 Acetaminophen 325 Mg Tab PO Q4H PRN Pain MILD(1-3)/Fever >100.5/JIN Albuterol 2.5 mg 10/17/20 03:30 Albuterol 2.5 Mg/3 Ml Nebu IH Q4HRT PRN Shortness Of Breath Albuterol/Ipratropium 1 ampul 10/17/20 08:00 10/17/20 10:52 Ipratropium/Albuterol Sulfate 3 Ml Ampul.Neb IH 1 ampul Q6HRT CHERISE Administration Amlodipine Besylate 5 mg 10/17/20 08:00 10/17/20 08:41 Amlodipine 5 Mg Tab PO 5 mg QDAY CHERISE Administration Famotidine 20 mg 10/17/20 10:00 10/17/20 10:59 Famotidine 20 Mg/2 Ml Inj IV 20 mg BID CHERISE Administration Heparin Sodium (Porcine) 5,000 unit 10/17/20 10:00 10/17/20 10:58 Heparin 5,000 Unit/1 Ml Vial SUB-Q 5,000 unit Q12HR CHERISE Administration Hydralazine HCl 10 mg 10/17/20 03:30 Hydralazine 20 Mg/1 Ml Inj IV Q6H PRN SBP >/=160; DBP >/=100 Hydromorphone HCl 0.5 mg 10/17/20 03:30 Hydromorphone 1 Mg/1 Ml Inj IV Q3H PRN Pain , Severe (7-10) Nitroglycerin/Dextrose 50 mg in 250 mls @ 3 mls/hr 10/16/20 22:00 10/17/20 09:14 Tridil Drip 50mg/250ml IV 0 mcg/min TITR CHERISE 0 mls/hr Titration Protocol 10 MCG/MIN Ceftriaxone Sodium 2 gm in 100 mls @ 200 mls/hr 10/17/20 21:00 Rocephin/Ns 2 Gm/100 Ml IV Q24H [facility] Protocol Azithromycin 500 mg in 250 mls @ 250 mls/hr 10/17/20 21:00 Zithromax/Ns IV Q24H [facility] Protocol Methylprednisolone Sodium Succinate 60 mg 10/17/20 14:00 Methylprednisolone Sod Succinate 125 Mg/2 Ml Inj IV Q8HR [facility] Ondansetron HCl 4 mg 10/17/20 03:30 Ondansetron 4 Mg/2 Ml Inj IV Q8H PRN Nausea And Vomiting Oxycodone/Acetaminophen 1 tab 10/17/20 03:30 Oxycodone /Acetaminophen 5-325mg Tab PO Q6H PRN Pain, Moderate (4-6) Sodium Chloride 10 ml 10/17/20 10:00 10/17/20 10:59 Sodium Chloride 0.9% 10 Ml Flush Syringe IV 10 ml BID CHERISE Administration Sodium Chloride 10 ml 10/17/20 03:30 Sodium Chloride 0.9% 10 Ml Flush Syringe IV PRN PRN LINE FLUSH
[2020-10-17] MEDS: methylPREDNISolone Sod Succinate 125 MG/2 ML INJ IV SCH ×2 (13:34→23:00)
--- NOTE | 2020-10-17 16:48 | Consultation ---
History of Present Illness - History of Present Illness 65-year-old male with history of COPD, admitted on 10/16/2020 secondary to few days of worsening cough and shortness of breath. Patient evaluated by EMS found him hypoxic and hypertensive. Patient reports recent COVID-19 test done outpatient was negative. Patient did not receive COVID-19 vaccine. On arrival temperature 97, HR 158, RR 37, O2 sat 91%, BP 140/110. Initial WBC 7.8. D- dimer 945. CRP 1.7. Creatinine 0.9. Ferritin 128. CTA shows no PE, no consolidations. Chest x-ray shows patchy mild bilateral interstitial infiltrates. Review of Systems: positive in bold print General: fever, chills, malaise Cutaneous: rash, pruritus Head: headaches or injury Eyes: changes in vision, eye pain, double vision Ears: ear pain, ear discharge, ringing or hearing loss Nose: nose bleeding, stuffiness Mouth & throat: bleeding gums, horseness, no dental problems, or swollen glands Neck: no pain, node enlargement/lumps, tyroid enlargement or tenderness Respiratory: SOB, cough, CERON, wheezing, sputum, hemoptysis, pleuritic chest pain Cardiovascular: chest pain, leg edema, cyanosis, CERON, orthopnea Musculoskeletal: edema, deformities, pain Gastrointestinal: nausea, vomiting, hematemesis, diarrhea, constipation, melena, bright red blood in stools, fecal incontinence, jaundice Genitourinary/Reproductive: frequent urination, dysuria, hematuria, incontinence Neurogical: seizures, headaches, weakness, paresthesias, loss of speech or vision; memory loss, vertigo, tremors, numbness Psychiatric: stable mood; excessive anxiety, sadness or moodiness Past History Past Medical History: COPD Medications and Allergies Allergies Allergy/AdvReac Type Severity Reaction Status Date / Time No Known Allergies Allergy Verified 10/16/20 21:11 Active Meds: Active Medications Acetaminophen (Acetaminophen 325 Mg Tab) 650 mg PO Q4H PRN PRN Reason: Pain MILD(1-3)/Fever >100.5/JIN Albuterol (Albuterol 2.5 Mg/3 Ml Nebu) 2.5 mg IH Q4HRT PRN PRN Reason: Shortness Of Breath Albuterol/Ipratropium (Ipratropium/Albuterol Sulfate 3 Ml Ampul.Neb) 1 ampul IH Q6HRT [facility] Last Admin: 10/17/20 14:55 Dose: 1 ampul Documented by: Amlodipine Besylate (Amlodipine 5 Mg Tab) 5 mg PO QDAY [facility] Last Admin: 10/17/20 08:41 Dose: 5 mg Documented by: Famotidine (Famotidine 20 Mg/2 Ml Inj) 20 mg IV BID [facility] Last Admin: 10/17/20 10:59 Dose: 20 mg Documented by: Heparin Sodium (Porcine) (Heparin 5,000 Unit/1 Ml Vial) 5,000 unit SUB-Q Q12HR [facility] Last Admin: 10/17/20 10:58 Dose: 5,000 unit Documented by: Hydralazine HCl (Hydralazine 20 Mg/1 Ml Inj) 10 mg IV Q6H PRN PRN Reason: SBP >/=160; DBP >/=100 Hydromorphone HCl (Hydromorphone 1 Mg/1 Ml Inj) 0.5 mg IV Q3H PRN PRN Reason: Pain , Severe (7-10) Nitroglycerin/Dextrose (Tridil Drip 50mg/250ml) 50 mg in 250 mls @ 3 mls/hr IV TITR [facility]; Protocol Last Titration: 10/17/20 09:14 Dose: 0 mcg/min, 0 mls/hr Documented by: Ceftriaxone Sodium (Rocephin/Ns 2 Gm/100 Ml) 2 gm in 100 mls @ 200 mls/hr IV Q24H [facility]; Protocol Azithromycin (Zithromax/Ns) 500 mg in 250 mls @ 250 mls/hr IV Q24H [facility]; Protocol Methylprednisolone Sodium Succinate (Methylprednisolone Sod Succinate 125 Mg/2 Ml Inj) 60 mg IV Q8HR [facility] Last Admin: 10/17/20 13:34 Dose: 60 mg Documented by: Ondansetron HCl (Ondansetron 4 Mg/2 Ml Inj) 4 mg IV Q8H PRN PRN Reason: Nausea And Vomiting Oxycodone/Acetaminophen (Oxycodone /Acetaminophen 5-325mg Tab) 1 tab PO Q6H PRN PRN Reason: Pain, Moderate (4-6) Sodium Chloride (Sodium Chloride 0.9% 10 Ml Flush Syringe) 10 ml IV BID [facility] Last Admin: 10/17/20 10:59 Dose: 10 ml Documented by: Sodium Chloride (Sodium Chloride 0.9% 10 Ml Flush Syringe) 10 ml IV PRN PRN PRN Reason: LINE FLUSH Physical Examination - Physical Exam Narrative exam: General appearance: Alert in moderate respiratory distress, anxious, on BiPAP Eyes: anicteric sclerae, moist conjunctivae; no lid-lag; PERRLA HENT: Normocephalic, Atraumatic; normal external ears, nares open, oropharynx limited due to BiPAP mask Neck: supple, tracheal midline, no JVD Lungs: scattered rhonchi CV: RRR Abdomen: Soft, non-tender Extremities: no edema, no cyanosis Skin: No rash. Psych: agitated Neuro: alert and oriented x 3. Moving all extermities \ - Constitutional Vitals: Vital Signs Temp Pulse Resp BP Pulse Ox 97.6 F 98 H 17 127/72 99 10/17/20 04:10 10/17/20 16:01 10/17/20 16:01 10/17/20 16:01 10/17/20 16:01 Temperature -Last 24 Hours Temperature 97.6 F Results - Labs CBC & Chem 7: 10/16/20 08:49 10/17/20 08:15 Labs: Abnormal lab results 10/16/20 10/16/20 10/16/20 Range/Units 08:49 08:49 21:33 RDW 15.9 H (13.2-15.2) % Lymph % (Auto) 37.9 H (13.4-35.0) % [place] % (Auto) 11.7 H (0.0-7.3) % Eos % (Auto) 5.7 H (0.0-4.3) % [place] # (Auto) 0.9 H (0.0-0.8) K/mm3 D-Dimer 945.42 H (0-234) ng/mlDDU POC ABG pO2 (83-108) mmHg ABG Oxyhemoglobin (94-98) ABG Sodium (136.0-145.0) mmol/L ABG Potassium (3.40-4.50) mmol/L ABG Glucose (65-95) mg/dL Sodium 136 L (137-145) mmol/L Potassium (3.6-5.0) mmol/L Glucose 209 H (75-100) mg/dL Magnesium 2.50 H (1.7-2.3) mg/dL C-Reactive Protein 1.70 H (0.00-1.30) mg/dL Arterial Blood Glucose (65-95) mg/dL 10/17/20 10/17/20 Range/Units 08:15 09:19 RDW (13.2-15.2) % Lymph % (Auto) (13.4-35.0) % [place] % (Auto) (0.0-7.3) % Eos % (Auto) (0.0-4.3) % [place] # (Auto) (0.0-0.8) K/mm3 D-Dimer (0-234) ng/mlDDU POC ABG pO2 374.3 H (83-108) mmHg ABG Oxyhemoglobin 99.2 H (94-98) ABG Sodium 134.2 L (136.0-145.0) mmol/L ABG Potassium 5.5 H (3.40-4.50) mmol/L ABG Glucose 153 H (65-95) mg/dL Sodium 135 L (137-145) mmol/L Potassium 6.1 H* D (3.6-5.0) mmol/L Glucose 174 H (75-100) mg/dL Magnesium (1.7-2.3) mg/dL C-Reactive Protein (0.00-1.30) mg/dL Arterial Blood Glucose 153 H (65-95) mg/dL Assessment and Plan Cultures: Blood culture 10/16/2020 pending SARS-CoV-2 PCR negative Assessment: 65-year-old male with history of COPD, admitted on 10/16/2020 secondary to few days of worsening cough and shortness of breath: #Acute hypoxemic respiratory failure: Likely secondary to COPD exacerbation. #COPD exacerbation: SARS-CoV-2 PCR sono patient was negative, repeat SARS-CoV-2 PCR inpatient negative. Chest x-ray with bilateral interstitial infiltrates. CTA no PE, no consolidations. CRP 1.7. Recommendations: Pulmonary on board Continue ceftriaxone 5 days, azithromycin 3 days Check HIV testing Will follow. Janey Garcia MD Infectious Diseases [facility] ([facility] [phone]
[2020-10-17 20:34] LABS: BUN/Creatinine Ratio 19; Blood Urea Nitrogen 23 mg/dL (9-20); Calcium 10.1 mg/dL (8.4-10.2); Hemolysis Index 3
[2020-10-17] MEDS: AZITHROMYCIN/NS 500 MG/250 ML 500 MG/250 ML BAG IV SCH (23:00)
[2020-10-17] MEDS: cefTRIAXone/NS 2 GM/100 ML 2 GM/100 ML BAG IV SCH (23:00)
[2020-10-18] MEDS: IPRATROPIUM/ALBUTEROL SULFATE 3 ML AMPUL.NEB IH SCH ×4 (03:51→20:35)
[2020-10-18 05:25] LABS: Basophils % (Auto) 0.3 % (0.0-1.8); Hematocrit 37.6 % (35.5-45.6); Hemoglobin 12.9 gm/dl (11.8-15.2); Lymphocytes # (Auto) 1.1 K/mm3 (1.2-5.4); Lymphocytes % (Auto) 8.5 % (13.4-35.0); Mean Corpuscular HGB Conc 34 % (32-34); Mean Corpuscular Volume 85 fl (84-94); Monocytes # (Auto) 0.2 K/mm3 (0.0-0.8); Monocytes % (Auto) 1.8 % (0.0-7.3); Platelet Count 247 K/mm3 (140-440); Red Blood Count 4.43 M/mm3 (3.65-5.03); Red Cell Distribution Width 15.4 % (13.2-15.2)
[2020-10-18 05:38] LABS: BUN/Creatinine Ratio 22; Blood Urea Nitrogen 24 mg/dL (9-20); Hemolysis Index 1
[2020-10-18] MEDS: methylPREDNISolone Sod Succinate 125 MG/2 ML INJ IV SCH ×2 (09:21→16:38)
[2020-10-18] MEDS: amLODIPine 5 MG TAB PO SCH (09:34)
[2020-10-18] MEDS: FAMOTIDINE 20 MG/2 ML INJ IV SCH (09:34)
[2020-10-18] MEDS: HEPARIN 5,000 UNIT/1 ML VIAL SUB-Q SCH (09:34)
--- NOTE | 2020-10-18 09:46 | Electrocardiograph Report ---
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
[2020-10-18] MEDS: BUDESONIDE 0.5 MG/2 ML NEBU IH SCH ×2 (10:13→20:35)
--- NOTE | 2020-10-18 13:24 | Progress Note ---
Assessment and Plan Assessment and plan: History of present illness: 65-year-old male with past medical history of COPD was brought to the emergency room because of acute onset shortness of breath. EMS reports the patient was hypertensive in the field, with a blood pressure of 200/140, and marked respiratory distress. Unvaccinated for COVID-19 pneumonia. Hospital course to date: 10/17/2020: BIPAP transitioned to HFNC. Breathing improved. Awaiting COVID PCR. Nitro gtt now off, will start oral antihypertensives. 10/18/2020: Currently at flow rate of 10 L/min, FiO2 75%. Will de-escalate as patient tolerates. Added budesonide nebulizers. Assessment and plan (1) Acute respiratory failure Current Visit: Yes Status: Acute Plan to address problem: Admit the patient to the critical care unit. Currently on high flow nasal cannula, de-escalate as patient tolerates DuoNeb by nebulizer every 4 hours. Ordered budesonide twice daily Rocephin 2 g IV daily and Zithromax 500 mg IV daily. Decadron 6 mg IV daily. Pulmonology following infectious disease following Covid negative, etiology likely is COPD exacerbation (4) acute exacerbation of COPD (chronic obstructive pulmonary disease) Current Visit: Yes Status: Acute Plan to address problem: DuoNeb by nebulizer every 4 hours. Budesonide twice daily Decadron 6 mg IV daily. Azithromycin IV/Rocephin IV (2) Hypertensive emergency Current Visit: Yes Status: Acute Plan to address problem: We put the patient in critical care unit. Patient started on nitroglycerin drip on admission, now off. BP is 131/83 and pulse 116 O2 sat 99%. We will monitor the patient closely. We consulted critical care evaluation Resume antihypertensives at therapy. Labetalol as needed (3) Suspected COVID-19 virus infection Current Visit: Yes Status: Acute Plan to address problem: Put the patient on BiPAP. DuoNeb by nebulizer every 4 hours. Nitroglycerin drip. Rocephin 2 g IV daily and Zithromax 500 mg IV daily. Decadron 6 mg IV daily. Covid negative (5) DVT prophylaxis Current Visit: Yes Status: Acute Plan to address problem: Heparin 5000 units subcu every 12 hours for DVT prophylaxis. Pepcid 20 mg IV every 12 hours for GI prophylaxis. Patient is a full code History Interval history: No overnight events. Still requiring high flow nasal cannula. Currently at flow rate of 10 L/min, FiO2 75% Hospitalist Physical - Physical exam Narrative exam: General appearance: Present: no acute distress, well-nourished - EENT Eyes: Present: PERRL ENT: hearing intact, clear oral mucosa - Neck Neck: Present: supple, normal ROM - Respiratory Respiratory effort: respiratory effort improved. on hfnc Respiratory: bilateral: rales - Cardiovascular Heart Sounds: Present: S1 & S2. Absent: rub, click - Extremities Extremities: pulses symmetrical, No edema Peripheral Pulses: within normal limits - Abdominal General gastrointestinal: Present: soft, non-tender, non-distended, normal bowel sounds Male genitourinary: Present: normal - Integumentary Integumentary: Present: clear, warm, dry - Musculoskeletal Musculoskeletal: gait normal, strength equal bilaterally - Psychiatric Psychiatric: appropriate mood/affect, intact judgment & insight - Neurologic Neurologic: CNII-XII intact, moves all extremities - Constitutional Vitals: Temp Pulse Resp BP Pulse Ox 97.6 F 104 H 16 124/98 97 10/17/20 04:10 10/18/20 08:00 10/18/20 09:00 10/18/20 09:00 10/18/20 09:00 General appearance: Present: no acute distress, well-nourished HEART Score - HEART Score Troponin: Troponin T < 0.010 ng/mL (0.00-0.029) 10/16/20 21:33 Results - Labs CBC & Chem 7: 10/18/20 04:14 10/18/20 04:14 Labs: Laboratory Last Values WBC 12.5 K/mm3 (4.5-11.0) H 10/18/20 04:14 RBC 4.43 M/mm3 (3.65-5.03) 10/18/20 04:14 Hgb 12.9 gm/dl (11.8-15.2) 10/18/20 04:14 Hct 37.6 % (35.5-45.6) 10/18/20 04:14 MCV 85 fl (84-94) 10/18/20 04:14 MCH 29 pg (28-32) 10/18/20 04:14 MCHC 34 % (32-34) 10/18/20 04:14 RDW 15.4 % (13.2-15.2) H 10/18/20 04:14 Plt Count 247 K/mm3 (140-440) 10/18/20 04:14 Lymph % (Auto) 8.5 % (13.4-35.0) L 10/18/20 04:14 [place] % (Auto) 1.8 % (0.0-7.3) 10/18/20 04:14 Eos % (Auto) 0.0 % (0.0-4.3) 10/18/20 04:14 Baso % (Auto) 0.3 % (0.0-1.8) 10/18/20 04:14 Lymph # (Auto) 1.1 K/mm3 (1.2-5.4) L 10/18/20 04:14 [place] # (Auto) 0.2 K/mm3 (0.0-0.8) 10/18/20 04:14 Eos # (Auto) 0.0 K/mm3 (0.0-0.4) 10/18/20 04:14 Baso # (Auto) 0.0 K/mm3 (0.0-0.1) 10/18/20 04:14 Seg Neutrophils % 89.4 % (40.0-70.0) H 10/18/20 04:14 Seg Neutrophils # 11.2 K/mm3 (1.8-7.7) H 10/18/20 04:14 PT 13.6 Sec. (12.2-14.9) 10/16/20 08:49 INR 0.99 (0.87-1.13) 10/16/20 08:49 APTT 29.1 Sec. (24.2-36.6) 10/16/20 08:49 D-Dimer 945.42 ng/mlDDU (0-234) H 10/16/20 08:49 ABG pH 7.354 (7.320-7.450) 10/17/20 09:19 POC ABG pCO2 43.3 mmHg (32.0-48.0) 10/17/20 09:19 POC ABG pO2 374.3 mmHg (83-108) H 10/17/20 09:19 POC ABG HCO3 23.6 10/17/20 09:19 ABG O2 Saturation 99.8 (0-100) 10/17/20 09:19 POC ABG Base Excess -2.0 10/17/20 09:19 ABG Hemoglobin 14.4 (12.0-17.5) 10/17/20 09:19 ABG Oxyhemoglobin 99.2 (94-98) H 10/17/20 09:19 ABG Methemoglobin 0.1 (0.0-1.5) 10/17/20 09:19 ABG Sodium 134.2 mmol/L (136.0-145.0) L 10/17/20 09:19 ABG Potassium 5.5 mmol/L (3.40-4.50) H 10/17/20 09:19 ABG Chloride 100.0 mmol/L (98-107) 10/17/20 09:19 ABG Glucose 153 mg/dL (65-95) H 10/17/20 09:19 Carboxyhemoglobin 0.5 (0.5-1.5) 10/17/20 09:19 FiO2 % 100.0 10/17/20 09:19 Sodium 138 mmol/L (137-145) 10/18/20 04:14 Potassium 5.1 mmol/L (3.6-5.0) H 10/18/20 04:14 Chloride 100.6 mmol/L (98-107) 10/18/20 04:14 Carbon Dioxide 28 mmol/L (22-30) 10/18/20 04:14 Anion Gap 15 mmol/L 10/18/20 04:14 BUN 24 mg/dL (9-20) H 10/18/20 04:14 Creatinine 1.1 mg/dL (0.8-1.3) 10/18/20 04:14 Estimated GFR > 60 ml/min 10/18/20 04:14 BUN/Creatinine Ratio 22 % 10/18/20 04:14 Glucose 142 mg/dL (75-100) H 10/18/20 04:14 Lactic Acid 1.70 mmol/L (0.7-2.0) 10/16/20 08:49 Calcium 10.0 mg/dL (8.4-10.2) 10/18/20 04:14 Magnesium 2.50 mg/dL (1.7-2.3) H 10/16/20 21:33 Ferritin 128.6 ng/mL (30.0-300.0) 10/16/20 21:33 Total Bilirubin 0.50 mg/dL (0.1-1.2) 10/16/20 21:33 AST 18 units/L (5-40) 10/16/20 21:33 ALT 24 units/L (7-56) 10/16/20 21:33 Alkaline Phosphatase 83 units/L (35-129) 10/16/20 21:33 Lactate Dehydrogenase 168 units/L (91-180) 10/16/20 21:33 Troponin T < 0.010 ng/mL (0.00-0.029) 10/16/20 21:33 C-Reactive Protein 1.70 mg/dL (0.00-1.30) H 10/16/20 21:33 NT-Pro-B Natriuret Pep 33.93 pg/mL (0-900) 10/16/20 21:33 Total Protein 7.9 g/dL (6.3-8.2) 10/16/20 21:33 Albumin 4.1 g/dL (3.9-5) 10/16/20 21:33 Albumin/Globulin Ratio 1.1 % 10/16/20 21:33 Procalcitonin < 0.05 ng/mL (<0.15) 10/16/20 21:33 Arterial Blood Glucose 153 mg/dL (65-95) H 10/17/20 09:19 Arterial Blood Ionized Calcium 4.9 mg/dL (4.6-5.3) 10/17/20 09:19 Urine Color Straw (Yellow) 10/17/20 Unknown Urine Turbidity Clear (Clear) 10/17/20 Unknown Urine pH 5.0 (5.0-7.0) 10/17/20 Unknown Ur Specific [place] 1.016 (1.003-1.030) 10/17/20 Unknown Urine Protein 30 mg/dl mg/dL (Negative) 10/17/20 Unknown Urine Glucose (UA) Neg mg/dL (Negative) 10/17/20 Unknown Urine Ketones Neg mg/dL (Negative) 10/17/20 Unknown Urine Blood Neg (Negative) 10/17/20 Unknown Urine Nitrite Neg (Negative) 10/17/20 Unknown Urine Bilirubin Neg (Negative) 10/17/20 Unknown Urine Urobilinogen < 2.0 mg/dL (<2.0) 10/17/20 Unknown Ur Leukocyte Esterase Neg (Negative) 10/17/20 Unknown Urine WBC (Auto) 1.0 /HPF (0.0-6.0) 10/17/20 Unknown Urine RBC (Auto) < 1.0 /HPF (0.0-6.0) 10/17/20 Unknown Hyaline Casts 1 /LPF 10/17/20 Unknown Urine Mucus Few /HPF 10/17/20 Unknown Coronavirus (PCR) Negative (Negative) 10/17/20 10:06 HIV 1&2 Antibody Rapid Non react (Non React) 10/17/20 18:33 HIV P24 Antigen Non react (Non React) 10/17/20 18:33 Microbiology: Microbiology 10/16/20 21:33 Peripheral/Venous Blood Culture - Preliminary NO GROWTH AFTER 24 HOURS 10/16/20 21:33 Peripheral/Venous Blood Culture - Preliminary NO GROWTH AFTER 24 HOURS Active Medications - Current Medications Current Medications: Generic Name Dose Route Start Last Admin Trade Name Freq PRN Reason Stop Dose Admin Acetaminophen 650 mg 10/17/20 03:30 Acetaminophen 325 Mg Tab PO Q4H PRN Pain MILD(1-3)/Fever >100.5/JIN Albuterol 2.5 mg 10/17/20 03:30 Albuterol 2.5 Mg/3 Ml Nebu IH Q4HRT PRN Shortness Of Breath Albuterol/Ipratropium 1 ampul 10/17/20 08:00 10/18/20 10:13 Ipratropium/Albuterol Sulfate 3 Ml Ampul.Neb IH 1 ampul Q6HRT CHERISE Administration Amlodipine Besylate 5 mg 10/17/20 08:00 10/18/20 09:34 Amlodipine 5 Mg Tab PO 5 mg QDAY CHERISE Administration Budesonide 0.5 mg 10/18/20 09:00 10/18/20 10:13 Budesonide 0.5 Mg/2 Ml Nebu IH 0.5 mg Q12HRT CHERISE Administration Famotidine 20 mg 10/17/20 10:00 10/18/20 09:34 Famotidine 20 Mg/2 Ml Inj IV 20 mg BID CHERISE Administration Heparin Sodium (Porcine) 5,000 unit 10/17/20 10:00 10/18/20 09:34 Heparin 5,000 Unit/1 Ml Vial SUB-Q 5,000 unit Q12HR CHERISE Administration Hydralazine HCl 10 mg 10/17/20 03:30 Hydralazine 20 Mg/1 Ml Inj IV Q6H PRN SBP >/=160; DBP >/=100 Hydromorphone HCl 0.5 mg 10/17/20 03:30 Hydromorphone 1 Mg/1 Ml Inj IV Q3H PRN Pain , Severe (7-10) Nitroglycerin/Dextrose 50 mg in 250 mls @ 3 mls/hr 10/16/20 22:00 10/17/20 09:14 Tridil Drip 50mg/250ml IV 0 mcg/min TITR CHERISE 0 mls/hr Titration Protocol 10 MCG/MIN Ceftriaxone Sodium 2 gm in 100 mls @ 200 mls/hr 10/17/20 21:00 10/17/20 23:00 Rocephin/Ns 2 Gm/100 Ml IV 10/21/20 21:29 200 mls/hr Q24H CHERISE Administration Protocol Azithromycin 500 mg in 250 mls @ 250 mls/hr 10/17/20 21:00 10/17/20 23:00 Zithromax/Ns IV 10/19/20 21:59 250 mls/hr Q24H CHERISE Administration Protocol Methylprednisolone Sodium Succinate 60 mg 10/17/20 14:00 10/18/20 09:21 Methylprednisolone Sod Succinate 125 Mg/2 Ml Inj IV 60 mg Q8HR CHERISE Administration Ondansetron HCl 4 mg 10/17/20 03:30 Ondansetron 4 Mg/2 Ml Inj IV Q8H PRN Nausea And Vomiting Oxycodone/Acetaminophen 1 tab 10/17/20 03:30 Oxycodone /Acetaminophen 5-325mg Tab PO Q6H PRN Pain, Moderate (4-6) Sodium Chloride 10 ml 10/17/20 10:00 10/18/20 09:34 Sodium Chloride 0.9% 10 Ml Flush Syringe IV 10 ml BID CHERISE Administration Sodium Chloride 10 ml 10/17/20 03:30 Sodium Chloride 0.9% 10 Ml Flush Syringe IV PRN PRN LINE FLUSH
--- NOTE | 2020-10-18 15:51 | Progress Note ---
Assessment and Plan Cultures: Blood culture 10/16/2020 no growth today SARS-CoV-2 PCR negative Assessment: 65-year-old male with history of COPD, admitted on 10/16/2020 secondary to few days of worsening cough and shortness of breath: #Acute hypoxemic respiratory failure: Likely secondary to COPD exacerbation. #COPD exacerbation: SARS-CoV-2 PCR outpatient was negative, repeat SARS-CoV-2 PCR inpatient negative. Chest x-ray with bilateral interstitial infiltrates. CTA no PE, no consolidations. CRP 1.7. HIV neg. Recommendations: Pulmonary on board Continue ceftriaxone 5 days, azithromycin 3 days Will sign off please call us if questions Janey Garcia MD Infectious Diseases Visual Aid Expert [facility] ([facility]) M [phone] Subjective Date of service: 10/18/20 Principal diagnosis: COPD Interval history: Remains afebrile now on HFNC. No fever. Objective - Exam Narrative Exam: General appearance: alert on HFFNC Eyes: anicteric sclerae, moist conjunctivae; no lid-lag; PERRLA HENT: Normocephalic, Atraumatic Neck: supple Lungs: distant CV: RRR Abdomen: Soft, non-tender Extremities: no edema, no cyanosis \ - Constitutional Vitals: Vital Signs Temp Pulse Resp BP Pulse Ox 97.6 F 82 17 124/98 97 10/17/20 04:10 10/18/20 14:00 10/18/20 14:00 10/18/20 09:00 10/18/20 09:00 - Labs CBC & Chem 7: 10/18/20 04:14 10/18/20 04:14 Labs: Abnormal lab results 10/17/20 10/18/20 10/18/20 Range/Units 18:33 04:14 04:14 WBC 12.5 H (4.5-11.0) K/mm3 RDW 15.4 H (13.2-15.2) % Lymph % (Auto) 8.5 L (13.4-35.0) % Lymph # (Auto) 1.1 L (1.2-5.4) K/mm3 Seg Neutrophils % 89.4 H (40.0-70.0) % Seg Neutrophils # 11.2 H (1.8-7.7) K/mm3 Sodium 134 L (137-145) mmol/L Potassium 5.2 H 5.1 H (3.6-5.0) mmol/L BUN 23 H 24 H (9-20) mg/dL Glucose 164 H 142 H (75-100) mg/dL
[2020-10-19] MEDS: cefTRIAXone/NS 2 GM/100 ML 2 GM/100 ML BAG IV SCH ×2 (00:14→22:21)
[2020-10-19] MEDS: methylPREDNISolone Sod Succinate 125 MG/2 ML INJ IV SCH ×2 (00:14→06:32)
[2020-10-19] MEDS: AZITHROMYCIN/NS 500 MG/250 ML 500 MG/250 ML BAG IV SCH ×2 (00:14→22:22)
[2020-10-19] MEDS: HEPARIN 5,000 UNIT/1 ML VIAL SUB-Q SCH ×3 (00:15→22:22)
[2020-10-19] MEDS: FAMOTIDINE 20 MG/2 ML INJ IV SCH ×3 (00:15→22:22)
[2020-10-19] MEDS: IPRATROPIUM/ALBUTEROL SULFATE 3 ML AMPUL.NEB IH SCH ×4 (02:18→20:57)
[2020-10-19] MEDS: BUDESONIDE 0.5 MG/2 ML NEBU IH SCH ×2 (07:30→20:57)
[2020-10-19 09:05] LABS: Hematocrit 38.2 % (35.5-45.6); Mean Corpuscular HGB Conc 34 % (32-34); Mean Corpuscular Volume 84 fl (84-94); Platelet Count 283 K/mm3 (140-440); Red Blood Count 4.57 M/mm3 (3.65-5.03); Red Cell Distribution Width 15.4 % (13.2-15.2)
[2020-10-19 09:24] LABS: BUN/Creatinine Ratio 24; Blood Urea Nitrogen 24 mg/dL (9-20); Calcium 9.7 mg/dL (8.4-10.2); Hemolysis Index 4
[2020-10-19] MEDS: amLODIPine 5 MG TAB PO SCH (11:00)
[2020-10-19] MEDS: NICOTINE 7 MG/24 HR PATCH TD SCH (14:23)
--- NOTE | 2020-10-19 16:14 | Progress Note ---
Assessment and Plan Assessment and plan: #Acute respiratory failure secondary to COPD exacerbation -Improving currently on 2 L nasal cannula, will wean as tolerated -Continue DuoNebs every 4 hours -Continue Rocephin x5 days, Cipro x3 days -Solu-Medrol tapered to 40 mg daily -Discussed smoking cessation, nicotine patch ordered #Hypertensive emergency -resolved, transferred from CCU -s/p nitro drip -Continue home amlodipine with as needed hydralazine #DVT prophylaxis -SQ heparin Total Time Spent with Patient (Minutes): 30 minutes History Interval history: No acute events overnight. Patient reports feeling comfortable on 3 L nasal cannula. Denies chest pain, palpitations and shortness of breath. Hospitalist Physical - Constitutional Vitals: Temp Pulse Resp BP Pulse Ox 98.3 F 74 20 127/72 93 10/19/20 11:43 10/19/20 14:33 10/19/20 14:33 10/19/20 11:43 10/19/20 11:43 General appearance: Present: no acute distress, well-nourished - Respiratory Respiratory effort: normal Respiratory: bilateral: diminished - Cardiovascular Rhythm: regular - Extremities Extremities: No edema - Abdominal General gastrointestinal: soft, non-tender, non-distended - Psychiatric Psychiatric: appropriate mood/affect - Neurologic Neurologic: moves all extremities HEART Score - HEART Score Troponin: Troponin T < 0.010 ng/mL (0.00-0.029) 10/16/20 21:33 Results - Labs CBC & Chem 7: 10/19/20 08:46 10/19/20 08:46 Labs: Laboratory Last Values WBC 11.8 K/mm3 (4.5-11.0) H 10/19/20 08:46 RBC 4.57 M/mm3 (3.65-5.03) 10/19/20 08:46 Hgb 13.0 gm/dl (11.8-15.2) 10/19/20 08:46 Hct 38.2 % (35.5-45.6) 10/19/20 08:46 MCV 84 fl (84-94) 10/19/20 08:46 MCH 29 pg (28-32) 10/19/20 08:46 MCHC 34 % (32-34) 10/19/20 08:46 RDW 15.4 % (13.2-15.2) H 10/19/20 08:46 Plt Count 283 K/mm3 (140-440) 10/19/20 08:46 Lymph % (Auto) 8.5 % (13.4-35.0) L 10/18/20 04:14 [place] % (Auto) 1.8 % (0.0-7.3) 10/18/20 04:14 Eos % (Auto) 0.0 % (0.0-4.3) 10/18/20 04:14 Baso % (Auto) 0.3 % (0.0-1.8) 10/18/20 04:14 Lymph # (Auto) 1.1 K/mm3 (1.2-5.4) L 10/18/20 04:14 [place] # (Auto) 0.2 K/mm3 (0.0-0.8) 10/18/20 04:14 Eos # (Auto) 0.0 K/mm3 (0.0-0.4) 10/18/20 04:14 Baso # (Auto) 0.0 K/mm3 (0.0-0.1) 10/18/20 04:14 Seg Neutrophils % 89.4 % (40.0-70.0) H 10/18/20 04:14 Seg Neutrophils # 11.2 K/mm3 (1.8-7.7) H 10/18/20 04:14 PT 13.6 Sec. (12.2-14.9) 10/16/20 08:49 INR 0.99 (0.87-1.13) 10/16/20 08:49 APTT 29.1 Sec. (24.2-36.6) 10/16/20 08:49 D-Dimer 945.42 ng/mlDDU (0-234) H 10/16/20 08:49 ABG pH 7.354 (7.320-7.450) 10/17/20 09:19 POC ABG pCO2 43.3 mmHg (32.0-48.0) 10/17/20 09:19 POC ABG pO2 374.3 mmHg (83-108) H 10/17/20 09:19 POC ABG HCO3 23.6 10/17/20 09:19 ABG O2 Saturation 99.8 (0-100) 10/17/20 09:19 POC ABG Base Excess -2.0 10/17/20 09:19 ABG Hemoglobin 14.4 (12.0-17.5) 10/17/20 09:19 ABG Oxyhemoglobin 99.2 (94-98) H 10/17/20 09:19 ABG Methemoglobin 0.1 (0.0-1.5) 10/17/20 09:19 ABG Sodium 134.2 mmol/L (136.0-145.0) L 10/17/20 09:19 ABG Potassium 5.5 mmol/L (3.40-4.50) H 10/17/20 09:19 ABG Chloride 100.0 mmol/L (98-107) 10/17/20 09:19 ABG Glucose 153 mg/dL (65-95) H 10/17/20 09:19 Carboxyhemoglobin 0.5 (0.5-1.5) 10/17/20 09:19 FiO2 % 100.0 10/17/20 09:19 Sodium 137 mmol/L (137-145) 10/19/20 08:46 Potassium 4.5 mmol/L (3.6-5.0) 10/19/20 08:46 Chloride 100.0 mmol/L (98-107) 10/19/20 08:46 Carbon Dioxide 30 mmol/L (22-30) 10/19/20 08:46 Anion Gap 12 mmol/L 10/19/20 08:46 BUN 24 mg/dL (9-20) H 10/19/20 08:46 Creatinine 1.0 mg/dL (0.8-1.3) 10/19/20 08:46 Estimated GFR > 60 ml/min 10/19/20 08:46 BUN/Creatinine Ratio 24 % 10/19/20 08:46 Glucose 140 mg/dL (75-100) H 10/19/20 08:46 POC Glucose 185 mg/dL (70-105) H 10/19/20 11:44 Lactic Acid 1.70 mmol/L (0.7-2.0) 10/16/20 08:49 Calcium 9.7 mg/dL (8.4-10.2) 10/19/20 08:46 Magnesium 2.50 mg/dL (1.7-2.3) H 10/16/20 21:33 Ferritin 128.6 ng/mL (30.0-300.0) 10/16/20 21:33 Total Bilirubin 0.50 mg/dL (0.1-1.2) 10/16/20 21:33 AST 18 units/L (5-40) 10/16/20 21:33 ALT 24 units/L (7-56) 10/16/20 21:33 Alkaline Phosphatase 83 units/L (35-129) 10/16/20 21:33 Lactate Dehydrogenase 168 units/L (91-180) 10/16/20 21:33 Troponin T < 0.010 ng/mL (0.00-0.029) 10/16/20 21:33 C-Reactive Protein 1.70 mg/dL (0.00-1.30) H 10/16/20 21:33 NT-Pro-B Natriuret Pep 33.93 pg/mL (0-900) 10/16/20 21:33 Total Protein 7.9 g/dL (6.3-8.2) 10/16/20 21:33 Albumin 4.1 g/dL (3.9-5) 10/16/20 21:33 Albumin/Globulin Ratio 1.1 % 10/16/20 21:33 Procalcitonin < 0.05 ng/mL (<0.15) 10/16/20 21:33 Arterial Blood Glucose 153 mg/dL (65-95) H 10/17/20 09:19 Arterial Blood Ionized Calcium 4.9 mg/dL (4.6-5.3) 10/17/20 09:19 Urine Color Straw (Yellow) 10/17/20 Unknown Urine Turbidity Clear (Clear) 10/17/20 Unknown Urine pH 5.0 (5.0-7.0) 10/17/20 Unknown Ur Specific [place] 1.016 (1.003-1.030) 10/17/20 Unknown Urine Protein 30 mg/dl mg/dL (Negative) 10/17/20 Unknown Urine Glucose (UA) Neg mg/dL (Negative) 10/17/20 Unknown Urine Ketones Neg mg/dL (Negative) 10/17/20 Unknown Urine Blood Neg (Negative) 10/17/20 Unknown Urine Nitrite Neg (Negative) 10/17/20 Unknown Urine Bilirubin Neg (Negative) 10/17/20 Unknown Urine Urobilinogen < 2.0 mg/dL (<2.0) 10/17/20 Unknown Ur Leukocyte Esterase Neg (Negative) 10/17/20 Unknown Urine WBC (Auto) 1.0 /HPF (0.0-6.0) 10/17/20 Unknown Urine RBC (Auto) < 1.0 /HPF (0.0-6.0) 10/17/20 Unknown Hyaline Casts 1 /LPF 10/17/20 Unknown Urine Mucus Few /HPF 10/17/20 Unknown Coronavirus (PCR) Negative (Negative) 10/17/20 10:06 HIV 1&2 Antibody Rapid Non react (Non React) 10/17/20 18:33 HIV P24 Antigen Non react (Non React) 10/17/20 18:33 Microbiology: Microbiology 10/16/20 21:33 Peripheral/Venous Blood Culture - Preliminary NO GROWTH AFTER 48 HOURS 10/16/20 21:33 Peripheral/Venous Blood Culture - Preliminary NO GROWTH AFTER 48 HOURS [place]/IV: Voiding Method Toilet Active Medications - Current Medications Current Medications: Generic Name Dose Route Start Last Admin Trade Name Freq PRN Reason Stop Dose Admin Acetaminophen 650 mg 10/17/20 03:30 Acetaminophen 325 Mg Tab PO Q4H PRN Pain MILD(1-3)/Fever >100.5/JIN Albuterol 2.5 mg 10/17/20 03:30 Albuterol 2.5 Mg/3 Ml Nebu IH Q4HRT PRN Shortness Of Breath Albuterol/Ipratropium 1 ampul 10/17/20 08:00 10/19/20 14:32 Ipratropium/Albuterol Sulfate 3 Ml Ampul.Neb IH 1 ampul Q6HRT CHERISE Administration Amlodipine Besylate 5 mg 10/17/20 08:00 10/19/20 11:00 Amlodipine 5 Mg Tab PO 5 mg QDAY CHERISE Administration Budesonide 0.5 mg 10/18/20 09:00 10/19/20 07:30 Budesonide 0.5 Mg/2 Ml Nebu IH 0.5 mg Q12HRT CHERISE Administration Famotidine 20 mg 10/17/20 10:00 10/19/20 11:00 Famotidine 20 Mg/2 Ml Inj IV 20 mg BID CHERISE Administration Heparin Sodium (Porcine) 5,000 unit 10/17/20 10:00 10/19/20 11:00 Heparin 5,000 Unit/1 Ml Vial SUB-Q 5,000 unit Q12HR CHERISE Administration Hydralazine HCl 10 mg 10/17/20 03:30 Hydralazine 20 Mg/1 Ml Inj IV Q6H PRN SBP >/=160; DBP >/=100 Hydromorphone HCl 0.5 mg 10/17/20 03:30 Hydromorphone 1 Mg/1 Ml Inj IV Q3H PRN Pain , Severe (7-10) Ceftriaxone Sodium 2 gm in 100 mls @ 200 mls/hr 10/17/20 21:00 10/19/20 00:14 Rocephin/Ns 2 Gm/100 Ml IV 10/21/20 21:29 200 mls/hr Q24H CHERISE Administration Protocol Azithromycin 500 mg in 250 mls @ 250 mls/hr 10/17/20 21:00 10/19/20 00:14 Zithromax/Ns IV 10/19/20 21:59 250 mls/hr Q24H CHERISE Administration Protocol Methylprednisolone Sodium Succinate 40 mg 10/20/20 10:00 Methylprednisolone Sod Succinate 40 Mg/1 Ml Inj IV Q24HR CHERISE Nicotine 7 mg 10/19/20 12:00 10/19/20 14:23 Nicotine 7 Mg/24 Hr Patch TD 7 mg QDAY CHERISE Administration Ondansetron HCl 4 mg 10/17/20 03:30 Ondansetron 4 Mg/2 Ml Inj IV Q8H PRN Nausea And Vomiting Oxycodone/Acetaminophen 1 tab 10/17/20 03:30 Oxycodone /Acetaminophen 5-325mg Tab PO Q6H PRN Pain, Moderate (4-6) Sodium Chloride 10 ml 10/17/20 10:00 10/19/20 11:00 Sodium Chloride 0.9% 10 Ml Flush Syringe IV 10 ml BID CHERISE Administration Sodium Chloride 10 ml 10/17/20 03:30 10/19/20 06:33 Sodium Chloride 0.9% 10 Ml Flush Syringe IV 10 ml PRN PRN Administration LINE FLUSH
[2020-10-20] MEDS: IPRATROPIUM/ALBUTEROL SULFATE 3 ML AMPUL.NEB IH SCH ×4 (04:26→20:16)
[2020-10-20 08:30] LABS: Hematocrit 38.9 % (35.5-45.6); Mean Corpuscular HGB Conc 33 % (32-34); Mean Corpuscular Volume 85 fl (84-94); Platelet Count 263 K/mm3 (140-440); Red Cell Distribution Width 15.7 % (13.2-15.2)
[2020-10-20 08:38] LABS: BUN/Creatinine Ratio 18; Blood Urea Nitrogen 20 mg/dL (9-20); Calcium 9.3 mg/dL (8.4-10.2); Hemolysis Index 9
[2020-10-20] MEDS: BUDESONIDE 0.5 MG/2 ML NEBU IH SCH ×2 (09:10→20:16)
[2020-10-20] MEDS ORDERED: methylPREDNISolone Sod Succinate 40 MG/1 ML INJ IV SCH (10:00)
[2020-10-20] MEDS: HEPARIN 5,000 UNIT/1 ML VIAL SUB-Q SCH ×2 (10:58→22:30)
[2020-10-20] MEDS: NICOTINE 7 MG/24 HR PATCH TD SCH (10:59)
[2020-10-20] MEDS: FAMOTIDINE 20 MG/2 ML INJ IV SCH ×2 (10:59→22:31)
[2020-10-20] MEDS: amLODIPine 5 MG TAB PO SCH (10:59)
--- NOTE | 2020-10-20 18:36 | Progress Note ---
Assessment and Plan Assessment and plan: #Acute respiratory failure secondary to COPD exacerbation -Currently on 2 L nasal cannula, will wean as tolerated -Continue DuoNebs every 4 hours -Continue Rocephin x5 days, Cipro x3 days -Solu-Medrol tapered to 40 mg daily -Discussed smoking cessation, nicotine patch ordered -6 minute walk test to determine if patient needs O2 at home #Hypertensive emergency -resolved, transferred from CCU -s/p nitro drip -Continue home amlodipine with as needed hydralazine #DVT prophylaxis -SQ heparin Disposition Plan: Home Total Time Spent with Patient (Minutes): 30 minutes History Interval history: No acute events overnight. Patient reports feeling comfortable on 2 L nasal cannula. Denies chest pain, palpitations and shortness of breath. Hospitalist Physical - Physical exam Narrative exam: GENERAL: Well-developed well-nourished. Standing up in no acute distress. HEENT: NC @2LPM CHEST/LUNGS: Expiratory wheezing bilaterally. HEART/CARDIOVASCULAR: RRR. No murmur, rubs or gallops appreciated. ABDOMEN: +BS. NT/ND. NEURO: No focal motor deficit. Follows all commands and is ambulatory. EXTREMITIES: No cyanosis, cubbing or edema. PSYCH: Cooperative. - Constitutional Vitals: Temp Pulse Resp BP Pulse Ox 97.6 F 76 20 120/65 97 10/20/20 04:40 10/20/20 15:17 10/20/20 14:41 10/20/20 15:17 10/20/20 15:17 General appearance: Present: no acute distress, well-nourished HEART Score - HEART Score Troponin: Troponin T < 0.010 ng/mL (0.00-0.029) 10/16/20 21:33 Results - Labs CBC & Chem 7: 10/20/20 07:59 10/20/20 07:59 Labs: Laboratory Last Values WBC 9.3 K/mm3 (4.5-11.0) 10/20/20 07:59 RBC 4.60 M/mm3 (3.65-5.03) 10/20/20 07:59 Hgb 13.0 gm/dl (11.8-15.2) 10/20/20 07:59 Hct 38.9 % (35.5-45.6) 10/20/20 07:59 MCV 85 fl (84-94) 10/20/20 07:59 MCH 28 pg (28-32) 10/20/20 07:59 MCHC 33 % (32-34) 10/20/20 07:59 RDW 15.7 % (13.2-15.2) H 10/20/20 07:59 Plt Count 263 K/mm3 (140-440) 10/20/20 07:59 Lymph % (Auto) 8.5 % (13.4-35.0) L 10/18/20 04:14 [place] % (Auto) 1.8 % (0.0-7.3) 10/18/20 04:14 Eos % (Auto) 0.0 % (0.0-4.3) 10/18/20 04:14 Baso % (Auto) 0.3 % (0.0-1.8) 10/18/20 04:14 Lymph # (Auto) 1.1 K/mm3 (1.2-5.4) L 10/18/20 04:14 [place] # (Auto) 0.2 K/mm3 (0.0-0.8) 10/18/20 04:14 Eos # (Auto) 0.0 K/mm3 (0.0-0.4) 10/18/20 04:14 Baso # (Auto) 0.0 K/mm3 (0.0-0.1) 10/18/20 04:14 Seg Neutrophils % 89.4 % (40.0-70.0) H 10/18/20 04:14 Seg Neutrophils # 11.2 K/mm3 (1.8-7.7) H 10/18/20 04:14 PT 13.6 Sec. (12.2-14.9) 10/16/20 08:49 INR 0.99 (0.87-1.13) 10/16/20 08:49 APTT 29.1 Sec. (24.2-36.6) 10/16/20 08:49 D-Dimer 945.42 ng/mlDDU (0-234) H 10/16/20 08:49 ABG pH 7.354 (7.320-7.450) 10/17/20 09:19 POC ABG pCO2 43.3 mmHg (32.0-48.0) 10/17/20 09:19 POC ABG pO2 374.3 mmHg (83-108) H 10/17/20 09:19 POC ABG HCO3 23.6 10/17/20 09:19 ABG O2 Saturation 99.8 (0-100) 10/17/20 09:19 POC ABG Base Excess -2.0 10/17/20 09:19 ABG Hemoglobin 14.4 (12.0-17.5) 10/17/20 09:19 ABG Oxyhemoglobin 99.2 (94-98) H 10/17/20 09:19 ABG Methemoglobin 0.1 (0.0-1.5) 10/17/20 09:19 ABG Sodium 134.2 mmol/L (136.0-145.0) L 10/17/20 09:19 ABG Potassium 5.5 mmol/L (3.40-4.50) H 10/17/20 09:19 ABG Chloride 100.0 mmol/L (98-107) 10/17/20 09:19 ABG Glucose 153 mg/dL (65-95) H 10/17/20 09:19 Carboxyhemoglobin 0.5 (0.5-1.5) 10/17/20 09:19 FiO2 % 100.0 10/17/20 09:19 Sodium 141 mmol/L (137-145) 10/20/20 07:59 Potassium 3.9 mmol/L (3.6-5.0) 10/20/20 07:59 Chloride 104.2 mmol/L (98-107) 10/20/20 07:59 Carbon Dioxide 27 mmol/L (22-30) 10/20/20 07:59 Anion Gap 14 mmol/L 10/20/20 07:59 BUN 20 mg/dL (9-20) 10/20/20 07:59 Creatinine 1.1 mg/dL (0.8-1.3) 10/20/20 07:59 Estimated GFR > 60 ml/min 10/20/20 07:59 BUN/Creatinine Ratio 18 % 10/20/20 07:59 Glucose 92 mg/dL (75-100) 10/20/20 07:59 POC Glucose 149 mg/dL (70-105) H 10/20/20 15:17 Lactic Acid 1.70 mmol/L (0.7-2.0) 10/16/20 08:49 Calcium 9.3 mg/dL (8.4-10.2) 10/20/20 07:59 Magnesium 2.50 mg/dL (1.7-2.3) H 10/16/20 21:33 Ferritin 128.6 ng/mL (30.0-300.0) 10/16/20 21:33 Total Bilirubin 0.50 mg/dL (0.1-1.2) 10/16/20 21:33 AST 18 units/L (5-40) 10/16/20 21:33 ALT 24 units/L (7-56) 10/16/20 21:33 Alkaline Phosphatase 83 units/L (35-129) 10/16/20 21:33 Lactate Dehydrogenase 168 units/L (91-180) 10/16/20 21:33 Troponin T < 0.010 ng/mL (0.00-0.029) 10/16/20 21:33 C-Reactive Protein 1.70 mg/dL (0.00-1.30) H 10/16/20 21:33 NT-Pro-B Natriuret Pep 33.93 pg/mL (0-900) 10/16/20 21:33 Total Protein 7.9 g/dL (6.3-8.2) 10/16/20 21:33 Albumin 4.1 g/dL (3.9-5) 10/16/20 21:33 Albumin/Globulin Ratio 1.1 % 10/16/20 21:33 Procalcitonin < 0.05 ng/mL (<0.15) 10/16/20 21:33 Arterial Blood Glucose 153 mg/dL (65-95) H 10/17/20 09:19 Arterial Blood Ionized Calcium 4.9 mg/dL (4.6-5.3) 10/17/20 09:19 Urine Color Straw (Yellow) 10/17/20 Unknown Urine Turbidity Clear (Clear) 10/17/20 Unknown Urine pH 5.0 (5.0-7.0) 10/17/20 Unknown Ur Specific [place] 1.016 (1.003-1.030) 10/17/20 Unknown Urine Protein 30 mg/dl mg/dL (Negative) 10/17/20 Unknown Urine Glucose (UA) Neg mg/dL (Negative) 10/17/20 Unknown Urine Ketones Neg mg/dL (Negative) 10/17/20 Unknown Urine Blood Neg (Negative) 10/17/20 Unknown Urine Nitrite Neg (Negative) 10/17/20 Unknown Urine Bilirubin Neg (Negative) 10/17/20 Unknown Urine Urobilinogen < 2.0 mg/dL (<2.0) 10/17/20 Unknown Ur Leukocyte Esterase Neg (Negative) 10/17/20 Unknown Urine WBC (Auto) 1.0 /HPF (0.0-6.0) 10/17/20 Unknown Urine RBC (Auto) < 1.0 /HPF (0.0-6.0) 10/17/20 Unknown Hyaline Casts 1 /LPF 10/17/20 Unknown Urine Mucus Few /HPF 10/17/20 Unknown Coronavirus (PCR) Negative (Negative) 10/17/20 10:06 HIV 1&2 Antibody Rapid Non react (Non React) 10/17/20 18:33 HIV P24 Antigen Non react (Non React) 10/17/20 18:33 Microbiology: Microbiology 10/16/20 21:33 Peripheral/Venous Blood Culture - Preliminary NO GROWTH AFTER 72 HOURS 10/16/20 21:33 Peripheral/Venous Blood Culture - Preliminary NO GROWTH AFTER 72 HOURS [place]/IV: Voiding Method Urinal Active Medications - Current Medications Current Medications: Generic Name Dose Route Start Last Admin Trade Name Freq PRN Reason Stop Dose Admin Acetaminophen 650 mg 10/17/20 03:30 Acetaminophen 325 Mg Tab PO Q4H PRN Pain MILD(1-3)/Fever >100.5/JIN Albuterol 2.5 mg 10/17/20 03:30 Albuterol 2.5 Mg/3 Ml Nebu IH Q4HRT PRN Shortness Of Breath Albuterol/Ipratropium 1 ampul 10/17/20 08:00 10/20/20 14:39 Ipratropium/Albuterol Sulfate 3 Ml Ampul.Neb IH 1 ampul Q6HRT CHERISE Administration Amlodipine Besylate 5 mg 10/17/20 08:00 10/20/20 10:59 Amlodipine 5 Mg Tab PO 5 mg QDAY CHERISE Administration Budesonide 0.5 mg 10/18/20 09:00 10/20/20 09:10 Budesonide 0.5 Mg/2 Ml Nebu IH 0.5 mg Q12HRT CHERISE Administration Famotidine 20 mg 10/17/20 10:00 10/20/20 10:59 Famotidine 20 Mg/2 Ml Inj IV 20 mg BID CHERISE Administration Heparin Sodium (Porcine) 5,000 unit 10/17/20 10:00 10/20/20 10:58 Heparin 5,000 Unit/1 Ml Vial SUB-Q 5,000 unit Q12HR CHERISE Administration Hydralazine HCl 10 mg 10/17/20 03:30 Hydralazine 20 Mg/1 Ml Inj IV Q6H PRN SBP >/=160; DBP >/=100 Hydromorphone HCl 0.5 mg 10/17/20 03:30 Hydromorphone 1 Mg/1 Ml Inj IV Q3H PRN Pain , Severe (7-10) Ceftriaxone Sodium 2 gm in 100 mls @ 200 mls/hr 10/17/20 21:00 10/19/20 22:21 Rocephin/Ns 2 Gm/100 Ml IV 10/21/20 21:29 200 mls/hr Q24H CHERISE Administration Protocol Methylprednisolone Sodium Succinate 40 mg 10/20/20 10:00 10/20/20 10:59 Methylprednisolone Sod Succinate 40 Mg/1 Ml Inj IV 40 mg Q24HR CHERISE Administration Nicotine 7 mg 10/19/20 12:00 10/20/20 10:59 Nicotine 7 Mg/24 Hr Patch TD 7 mg QDAY CHERISE Administration Ondansetron HCl 4 mg 10/17/20 03:30 Ondansetron 4 Mg/2 Ml Inj IV Q8H PRN Nausea And Vomiting Oxycodone/Acetaminophen 1 tab 10/17/20 03:30 Oxycodone /Acetaminophen 5-325mg Tab PO Q6H PRN Pain, Moderate (4-6) Sodium Chloride 10 ml 10/17/20 10:00 10/20/20 10:59 Sodium Chloride 0.9% 10 Ml Flush Syringe IV 10 ml BID CHERISE Administration Sodium Chloride 10 ml 10/17/20 03:30 10/19/20 06:33 Sodium Chloride 0.9% 10 Ml Flush Syringe IV 10 ml PRN PRN Administration LINE FLUSH
[2020-10-20] MEDS: cefTRIAXone/NS 2 GM/100 ML 2 GM/100 ML BAG IV SCH (22:30)
[2020-10-21] MEDS: IPRATROPIUM/ALBUTEROL SULFATE 3 ML AMPUL.NEB IH SCH ×2 (03:24→11:03)
[2020-10-21] MEDS: amLODIPine 5 MG TAB PO SCH (09:41)
[2020-10-21] MEDS: HEPARIN 5,000 UNIT/1 ML VIAL SUB-Q SCH (09:41)
[2020-10-21] MEDS: FAMOTIDINE 20 MG/2 ML INJ IV SCH (09:42)
[2020-10-21] MEDS ORDERED: predniSONE 20 MG TAB PO SCH (10:00)
[2020-10-21] MEDS: BUDESONIDE 0.5 MG/2 ML NEBU IH SCH (11:04)
--- NOTE | 2020-10-21 11:42 | Discharge Summary ---
Providers - Providers Date of Admission: 10/17/20 00:47 Date of discharge: 10/21/20 Attending physician: BRANDY JENNINGS MD 10/17/20 02:49 Consult to Physician [CONS] Routine Comment: Consulting Provider: TERRANCE GALVIN Physician Instructions: Reason For Exam: covid Primary care physician: [employer]CHNICIAN Hospitalization Condition: Critical Disposition: 01 HOME / SELF CARE / HOMELESS Exam - Constitutional Vitals: Temp Pulse Resp BP Pulse Ox 98.5 F 63 20 125/83 96 10/21/20 07:45 10/21/20 07:45 10/21/20 07:45 10/21/20 07:45 10/21/20 11:05 Plan Care Plan Goals: Smoking cessation. Follow up with PCP in 1 week. Assessment: Admitted with COPD exacerbation. Patient clinically improved, no longer requiring oxygen. Will discharge home in the care of daughter. Follow up with: PRIMARY CARE, [Primary Care Provider] - 7 Days Prescriptions: Nicotine [Habitrol] 7 mg TD QDAY 30 Days #30 patch Prednisone [predniSONE 10 mg (6-Day Pack, 21 Tabs)] 10 mg PO .TAPER #1 tab.ds.pk Albuterol Sulfate [Proair Digihaler] 90 mcg IH Q4H PRN 30 Days #2 aer.pw.bas PRN Reason: Shortness Of Breath Tiotropium [Spiriva] 18 mcg IH QDAY 30 Days #2 box Budesonide/Formoterol Fumarate [Symbicort 160-4.5 Mcg Inhaler] 10.2 gm IH BID 30 Days #2 hfa.aer.ad
[2020-10-21 12:18] VITALS: BP 124/87
[2020-10-21] MEDS ORDERED: FAMOTIDINE 20 MG TAB PO SCH (22:00)
--- NOTE | 2020-10-22 13:26 | Electrocardiograph Report ---
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
== END 2020-10-21 15:17 | disposition home or self-care (01) | DRG 190 ==
LOC: ED 20:28 → CC1 10-17 00:47 → 4A 10-17 18:42
PROVIDERS: ADMIT Hospitalist; ATTEND Student in an Organized Health Care Education/Training Program
PROC: 5A09357 Assistance with Respiratory Ventilation, Less than 24 Consecutive Hours, Continuous Positive Airway Pressure (ICD-10-PCS; principal; 2020-10-17)
PROC: 5A0935A Assistance with Respiratory Ventilation, Less than 24 Consecutive Hours, High Flow/Velocity Cannula (ICD-10-PCS; 2020-10-17)
PROC: 4A033R1 Measurement of Arterial Saturation, Peripheral, Percutaneous Approach (ICD-10-PCS; 2020-10-17)
DX: J44.1 Chronic obstructive pulmonary disease with (acute) exacerbation (principal); J96.01 Acute respiratory failure with hypoxia; I16.1 Hypertensive emergency; Z20.822 Contact with and (suspected) exposure to COVID-19; F17.200 Nicotine dependence, unspecified, uncomplicated; Z71.6 Tobacco abuse counseling
CPT/HCPCS: 36415; 36600; 71045; 71275; 80048; 80053; 81001; 82140; 82728; 82805; 82962; 83615; 83735; 83880; 84145; 84484; 85025; 85027; 85379; 85610; 85730; 86140; 87040; 87806; 93005; 94640; 94644; 94760; 99406; G0378; J0456; J0696; J1100; J1644; J1940; J2920; J2930; J7050; J7512; Q9967; U0003

== ENCOUNTER 2021-05-11 08:12 | Outpatient (CLI) | payer OTHER | END 2021-05-11 08:13 | disposition home or self-care (01) | LOC: PF 08:12 | PROVIDERS: ATTEND Internal Medicine | DX: I10 Essential (primary) hypertension (principal); R91.1 Solitary pulmonary nodule; J44.9 Chronic obstructive pulmonary disease, unspecified | CPT/HCPCS: 94060 ==

== ENCOUNTER 2021-06-14 11:07 | Outpatient (CLI) | payer OTHER ==
--- NOTE | 2021-06-14 13:53 | XRay Report ---
CERVICAL SPINE 3 VIEWS INDICATION: Neck pain. COMPARISON: None. IMPRESSION: Limited exam with poor visualization of the cervical vertebra on the lateral view due to the shoulders. Alignment appears normal. 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 No obvious acute fracture or bone lesion. If further evaluation is needed, CT is recommended. THORACIC SPINE 2 VIEWS INDICATION: BACK PAIN. COMPARISON: None. IMPRESSION: Normal alignment. Mild to moderate multilevel discogenic DJD is present which is most p ronounced in the lower thoracic spine. No acute osseous or soft tissue abnormality. Signer Name: Stone Ivory Jr, MD Signed: 06/14/2021 1:49 PM Workstation Name: [id number]
== END 2021-06-14 11:08 | disposition home or self-care (01) ==
LOC: XRAY 11:07
PROVIDERS: ATTEND Internal Medicine
DX: M47.814 Spondylosis without myelopathy or radiculopathy, thoracic region (principal); M47.812 Spondylosis without myelopathy or radiculopathy, cervical region
CPT/HCPCS: 72040; 72070